=== PATIENT | female | born 1930 | race Caucasian/White ===

== ENCOUNTER 2018-01-21 14:37 | Observation (INO) | payer MEDICARE ==
[2018-01-21] MEDS ORDERED: Adenocard IV 6 MG/2 ML IV ONE ×4 (14:51→15:09)
[2018-01-21] MEDS ORDERED: Sodium Chloride 0.9% 1000 ML 1,000 ML IV SCH ×2 (15:00→16:52)
[2018-01-21] MEDS ORDERED: Sodium Chloride 0.9% 1000 ML 1,000 ML ONE (15:01)
[2018-01-21] MEDS ORDERED: CARDIZEM DRIP 100 MG/100 ML D5W 100 ML IV ONE (15:13)
[2018-01-21 15:15] LABS: BASOPHIL % 0.2 % (0.0-0.4); Basophil (Absolute #) 0.01 (0-0.4); Eosinophil (Absolute #) 0 (0-0.5); Granulocyte Absolute (ANC) 4.45 (1.4-6.9); Granulocytes % 74.9 % (36.0-66.0); Hematocrit 36.9 % (35-47); Hemoglobin 12.1 gm/dl (12.0-16.0); Lymphocyte (Absolute #) 0.87 (1.0-4.6); Lymphocytes % 14.6 % (24.0-44.0); Mean Cell Volume 89.1 fl (78-100); Mean Corpuscular Hemoglobin 29.2 pg (26-32); Mean Corpuscular Hgb Concent. 32.8 g/dl (32-36); Mean Platelet Volume 9.6 fl (6-9.5); Monocyte (Absolute #) 0.61 (0.0-1.3); Monocytes % 10.3 % (0.0-12.0); Platelet Count 201 K/mm3 (150-450); Red Blood Count 4.14 M/mm3 (4.1-5.4); White Blood Count 5.9 K/mm3 (4.0-10.5)
--- NOTE | 2018-01-21 15:19 | ERPHSYRPT ---
- History of Present Illness Time Seen by Provider: 01/21/18 15:15 Source: patient, family Exam Limitations: no limitations Patient Subjective Stated Complaint: pt reports heart palpitations for 3 days. states at times she is short of breath. reports history of a-fib. Triage Nursing Assessment: pt is aox3, pupils perrl although there is an abnormality to the left pupil, pt afebrile, radial pulses are strong and irregular. pt is tachycardic. heart sounds are strong and irregular. pt resps are easy and non labored, with periods of intermittent shortness of breath, cap refill <3 seconds, no edema noted. skin is pink warm dry. Physician History: pt reports heart palpitations for 3 days. states at times she is short of breath. reports history of a-fib. Timing/Duration: today Quality: tightness Location: substernal, central Chest Pain Radiation: no radiation Severity of Pain-Max: mild Severity of Pain-Current: mild Aspirin Treatment Today: no aspirin today Associated Symptoms: shortness of breath Allergies/Adverse Reactions: amoxicillin [Amoxicillin] Allergy (Verified 01/21/18 15:02) dicyclomine HCl [From Bentyl] Allergy (Verified 01/21/18 15:02) levofloxacin [From Levaquin] Allergy (Verified 01/21/18 15:02) Penicillins Allergy (Verified 01/21/18 15:02) sulfamethoxazole [From Bactrim] Allergy (Verified 01/21/18 15:02) Home Medications: Metoprolol Tartrate 50 mg [Lopressor 50 MG] 50 mg PO BID 12/02/15 [History ] Rivaroxaban [Xarelto] 15 mg PO DAILY 12/02/15 [History] Doxycycline Hyclate 100 tab PO BID 12/06/15 [History] Nitrofurantoin Macrocrystal [Macrodantin] 100 cap PO BID 12/06/15 [History] Hx Tetanus, Diphtheria Vaccination/Date Given: No Hx Influenza Vaccination/Date Given: Yes Hx Pneumococcal Vaccination/Date Given: Yes Immunizations Up to Date: Yes - Review of Systems Constitutional: No Fever, No Chills Eyes: No Symptoms Ears, Nose, & Throat: No Symptoms Respiratory: Dyspnea, No Cough Cardiac: Chest Pain, Palpitations, No Edema, No Syncope Abdominal/Gastrointestinal: No Abdominal Pain, No Nausea, No Vomiting, No Diarrhea Genitourinary Symptoms: No Dysuria Musculoskeletal: No Back Pain, No Neck Pain Skin: No Rash Neurological: No Dizziness, No Focal Weakness, No Sensory Changes Psychological: No Symptoms Endocrine: No Symptoms All Other Systems: Reviewed and Negative - Past Medical History Pertinent Past Medical History: Yes Neurological History: No Pertinent History ENT History: Cataracts Cardiac History: Arrhythmia Respiratory History: No Pertinent History Endocrine Medical History: No Pertinent History, Other Musculoskeletal History: No Pertinent History GI Medical History: No Pertinent History History: No Pertinent History Psycho-Social History: No Pertinent History Female Reproductive Disorders: No Pertinent History Other Medical History: pacemaker placed 2016. goiter - Past Surgical History Past Surgical History: Yes Neuro Surgical History: No Pertinent History Cardiac: No Pertinent History Respiratory: No Pertinent History Gastrointestinal: No Pertinent History Genitourinary: No Pertinent History Female Surgical History: Hysterectomy, Other Other Surgical History: cyst removed from right breast, hyst 10 years ago, cataract surgery 2 years ago - Social History Smoking Status: Never smoker Exposure to second hand smoke: No Drug Use: none Patient Lives Alone: Yes - Female History Hx Now: No - Nursing Vital Signs Nursing Vital Signs: Initial Vital Signs Temperature 97.5 F 01/21/18 14:39 Pulse Rate 130 H 01/21/18 14:39 Respiratory Rate 20 01/21/18 14:39 Blood Pressure 116/84 01/21/18 14:39 O2 Sat by Pulse Oximetry 97 01/21/18 14:39 Pain Scale Pain Intensity 0 - Physical Exam General Appearance: no apparent distress, alert Eye Exam: PERRL/EOMI, eyes nml inspection Ears, Nose, Throat Exam: normal ENT inspection, moist mucous membranes Neck Exam: normal inspection, non-tender, supple Respiratory Exam: normal breath sounds, lungs clear, No respiratory distress Cardiovascular Exam: tachycardia, irregular, No edema Gastrointestinal/Abdomen Exam: soft, No tenderness, No mass Back Exam: normal inspection, No CVA tenderness, No vertebral tenderness Extremity Exam: normal inspection, normal range of motion Neurologic Exam: alert, oriented x 3, cooperative, normal mood/affect, nml cerebellar function, sensation nml, No motor deficits Skin Exam: normal color, warm, dry Lymphatic Exam: No adenopathy SpO2: 97 Oxygen Delivery: Room Air - Course Nursing assessment & vital signs reviewed: Yes EKG Interpreted by Me: A-fib - Radiology Exams Chest X-ray Interpretation: Reviewed by me Ordered Tests: Active Orders 24 hr Category Date Time Status Court Interpreter STAT Care 01/21/18 14:52 Active EKG-ER Only STAT Care 01/21/18 14:51 Active CBC W DIFF Stat Lab 01/21/18 15:05 Received CMP Stat Lab 01/21/18 15:05 Received NT PRO BNP Stat Lab 01/21/18 15:05 Received TROPONIN Q3H Lab 01/21/18 15:05 Received TROPONIN Q3H Lab 01/21/18 18:00 Ordered TROPONIN Q3H Lab 01/21/18 21:00 Ordered TROPONIN Q3H Lab 01/22/18 00:00 Ordered TROPONIN Q3H Lab 01/22/18 03:00 Ordered Medication Summary Generic Name Dose Route Start Last Admin Trade Name Freq PRN Reason Stop Dose Admin Sodium Chloride 1,000 mls @ 50 mls/hr 01/21/18 15:00 Sodium Chloride 0.9% 1000 Ml IV 02/20/18 14:59 .Q20H KAYLA Discontinued Medications Generic Name Dose Route Start Last Admin Trade Name Freq PRN Reason Stop Dose Admin Adenosine 6 mg 01/21/18 14:51 Adenocard Iv 6 Mg/2 Ml IV 01/21/18 14:52 STAT ONE Adenosine 12 mg 01/21/18 14:51 Adenocard Iv 6 Mg/2 Ml IV 01/21/18 14:52 STAT ONE Adenosine Confirm 01/21/18 15:00 Adenocard Iv 6 Mg/2 Ml Administered 01/21/18 15:01 Dose 12 mg IV .STK-MED ONE Adenosine Confirm 01/21/18 15:09 Adenocard Iv 6 Mg/2 Ml Administered 01/21/18 15:10 Dose 6 mg IV .STK-MED ONE - Progress Progress: improved Air Movement: good Progress Note: 01/21/18 15:17 6 mg of adenosine IV. Given, which did bring patient heart rate down to 80s but then it went back up to 130s and 140s, so another 12 mg of ready. No sign given, which did bring patient's heart rate in the range of 90 to110. Blood Culture(s) Obtained: No Antibiotics given: No Discussed with : Diana Will see patient in: hospital (observation) Counseled pt/family regarding: lab results, diagnosis, need for follow-up - Departure Time of Disposition: 15:18 Departure Disposition: Observation Clinical Impression: Atrial fibrillation with rapid ventricular response Condition: Fair Critical Care Time: Yes Critical Care Time(excluding separately billable procedures): 30-74 minutes Referrals: DONN CHUN MD [Primary Care Provider] -
[2018-01-21] MEDS ORDERED: CARDIZEM DRIP 100 MG/100 ML D5W 100 ML IV PRN ×2 (15:33→16:52)
[2018-01-21 15:40] LABS: ALBUMIN 3.6 g/dL (3.5-5.0); ANION GAP 14.9 MEQ/L (5-15); BILIRUBIN,TOTAL 0.3 mg/dL (0.2-1.3); Calcium 8.8 mg/dL (8.4-10.2); Creatinine 1 1.1 mg/dL (0.52-1.04); Potassium 4.2 mmol/L (3.5-5.1); Total Protein 6.3 g/dL (6.3-8.2)
[2018-01-21] MEDS: Sodium Chloride 0.9% 1000 ML 1,000 ML IV SCH (16:16)
[2018-01-21] MEDS: PTU 50MG PO SCH (20:59)
[2018-01-21] MEDS: Toprol Xl 50 MG PO SCH (20:59)
[2018-01-22 04:08] VITALS: O2SAT 97
[2018-01-22 06:09] LABS: Hematocrit 34.2 % (35-47); Hemoglobin 11.1 gm/dl (12.0-16.0); Mean Cell Volume 90.2 fl (78-100); Mean Corpuscular Hgb Concent. 32.5 g/dl (32-36); Mean Platelet Volume 9.7 fl (6-9.5); Platelet Count 185 K/mm3 (150-450); Red Blood Count 3.79 M/mm3 (4.1-5.4); Red Cell Distribution Width 15.3 % (11.5-14.0); White Blood Count 5.9 K/mm3 (4.0-10.5)
[2018-01-22 06:21] LABS: Mean Corpuscular Hemoglobin 29.2 pg (26-32)
[2018-01-22 06:33] LABS: ALBUMIN 3.1 g/dL (3.5-5.0); ALKALINE PHOSPHATASE 47 U/L (38-126); ANION GAP 11.7 MEQ/L (5-15); BLOOD UREA NITROGEN 18 mg/dL (7-17); CHLORIDE 112 mmol/L (98-107); Calcium 8.5 mg/dL (8.4-10.2); Carbon Dioxide 21 mmol/L (22-30); Creatinine 1 0.89 mg/dL (0.52-1.04); Glucose 94 mg/dL (74-106); Potassium 4.4 mmol/L (3.5-5.1); SGOT/AST 18 U/L (14-36); SGPT/ALT 23 U/L (0-35); SODIUM 140 mmol/L (137-145); Total Protein 5.6 g/dL (6.3-8.2)
[2018-01-22 07:40] VITALS: BP 152/59; PULSE 72
[2018-01-22] MEDS ORDERED: TYLENOL 325 MG PO PRN (08:31)
[2018-01-22] MEDS: Sodium Chloride 0.9% 1000 ML 1,000 ML IV SCH (08:35)
[2018-01-22] MEDS: PTU 50MG PO SCH (09:13)
[2018-01-22] MEDS: Toprol Xl 50 MG PO SCH (09:15)
[2018-01-22] MEDS ORDERED: XARELTO 10 MG TABLET PO SCH (10:00)
[2018-01-22] MEDS ORDERED: NORVASC 5 MG PO SCH (10:00)
[2018-01-22] MEDS ORDERED: ECOTRIN 81 MG PO SCH (10:00)
[2018-01-22] MEDS ORDERED: NON-FORMULARY ITEM (Amlodipine Besylate [Norvasc] 2.5 MG) PO SCH (10:00)
--- NOTE | 2018-01-22 11:46 | PCM.SSS ---
History of Present Illness - Chief Complaint Chief Complaint: c/o palpitations for 1 days History of Present Illness: is a 87 year old female.came to ER with C/0 palpitations and chest tightness for 1 day - Review of Systems Constitutional: No Fever, No Chills Eyes: No Symptoms Ears, Nose, & Throat: No Symptoms Respiratory: No Cough, No Short Of Breath Cardiac: Chest Pain, Palpitations, No Edema, No Syncope, No Orthopnea, No PND Abdominal/Gastrointestinal: No Abdominal Pain, No Nausea, No Vomiting, No Diarrhea Genitourinary Symptoms: No Dysuria Musculoskeletal: No Back Pain, No Neck Pain Skin: No Rash Neurological: No Dizziness, No Focal Weakness, No Sensory Changes Psychological: No Symptoms Endocrine: No Symptoms Hematologic/Lymphatic: No Symptoms Immunological/Allergic: No Symptoms Medications & Allergies Home Medications: Home Medication List Amlodipine Besylate [Norvasc] 2.5 mg PO DAILY 01/21/18 [History Confirmed ] Aspirin EC 81 mg [Ecotrin 81 mg] 81 mg PO DAILY 01/21/18 [History Confirmed 01/21/18] Metoprolol Succinate 50 mg [Toprol Xl 50 MG] 50 mg PO BID 01/21/18 [ History Confirmed 01/21/18] Propylthiouracil 200 mg PO TID 01/21/18 [History Confirmed 01/21/18] Rivaroxaban [Xarelto] 15 mg PO QAM 01/21/18 [History Confirmed 01/21/18] Allergies/Adverse Reactions: Allergies Allergy/AdvReac Type Severity Reaction Status Date / Time amoxicillin [Amoxicillin] Allergy Verified 01/21/18 15:02 dicyclomine HCl [From Bentyl] Allergy Verified 01/21/18 15:02 levofloxacin [From Levaquin] Allergy Verified 01/21/18 15:02 Penicillins Allergy Verified 01/21/18 15:02 sulfamethoxazole Allergy Verified 01/21/18 15:02 [From Bactrim] - Past Medical History Past Medical History: Yes Neurological History: No Pertinent History ENT History: Cataracts Cardiac History: Arrhythmia Respiratory History: No Pertinent History Endocrine Medical History: No Pertinent History, Other Musculoskelatal History: No Pertinent History GI Medical History: No Pertinent History History: No Pertinent History Pyscho-Social History: No Pertinent History Reproductive Disorders: No Pertinent History Comment: pacemaker placed 2016. goiter - Female History Hx Last Menstrual Period: N/A Are you now?: No - Past Surgical History Past Surgical History: Yes Neuro Surgical History: No Pertinent History Cardiac History: No Pertinent History Respiratory Surgery: No Pertinent History GI Surgical History: No Pertinent History Genitourinary Surgical Hx: No Pertinent History Female Surgical History: Hysterectomy, Other Other Surgical History: cyst removed from right breast, hyst 10 years ago, cataract surgery 2 years ago - Social History Smoking Status: Never smoker Exposure to second hand smoke: No Alcohol: None Drug Use: none - Physical Exam Vital Signs: Vital Signs - 24 hr Temp Pulse Pulse Resp BP Pulse Ox 01/22/18 07:37 72 19 152/59 97 01/22/18 04:00 98.4 F 71 18 100/41 97 01/22/18 00:01 70 01/22/18 00:00 98.1 F 70 21 113/49 98 01/21/18 23:59 19 01/21/18 20:00 15 01/21/18 19:49 97.6 F 73 12 96/45 97 01/21/18 17:41 73 20 122/62 97 01/21/18 17:10 72 20 96/50 98 01/21/18 17:00 71 19 94/50 96 01/21/18 16:53 98.0 F 70 18 108/59 99 01/21/18 16:09 112 H 18 92/60 97 01/21/18 16:00 120 H 20 82/47 98 01/21/18 15:19 97 01/21/18 14:39 97.5 F 129 H 130 H 20 116/84 97 General Appearance: no apparent distress, alert Neurologic Exam: alert, oriented x 3, cooperative, normal mood/affect, nml cerebellar function, nml station & gait, sensation nml, No motor deficits Eye Exam: PERRL/EOMI, eyes nml inspection Ears, Nose, Throat Exam: normal ENT inspection, TMs normal, pharynx normal, moist mucous membranes Neck Exam: normal inspection, non-tender, supple, full range of motion Respiratory Exam: normal breath sounds, lungs clear, No respiratory distress Cardiovascular Exam: tachycardia, irregular Gastrointestinal/Abdomen Exam: soft, normal bowel sounds, No tenderness, No mass Back Exam: normal inspection, normal range of motion, No CVA tenderness, No vertebral tenderness Extremity Exam: normal inspection, normal range of motion, pelvis stable Skin Exam: normal color, warm, dry, No rash Lymphatic Exam: No adenopathy Results - Labs Lab/Micro Results: Lab Results-Last 24 Hours 01/21/18 01/21/18 01/21/18 Range/Units 15:05 15:05 15:05 WBC 5.9 (4.0-10.5) K/mm3 RBC 4.14 (4.1-5.4) M/mm3 Hgb 12.1 (12.0-16.0) gm/dl Hct 36.9 (35-47) % MCV 89.1 (78-100) fl MCH 29.2 (26-32) pg MCHC 32.8 (32-36) g/dl RDW 15.0 H (11.5-14.0) % Plt Count 201 (150-450) K/mm3 MPV 9.6 H (6-9.5) fl Gran % 74.9 H (36.0-66.0) % Eos # (Auto) 0 (0-0.5) Absolute Lymphs (auto) 0.87 L (1.0-4.6) Absolute Monos (auto) 0.61 (0.0-1.3) Lymphocytes % 14.6 L (24.0-44.0) % Monocytes % 10.3 (0.0-12.0) % Eosinophils % 0.0 (0.00-5.0) % Basophils % 0.2 (0.0-0.4) % Absolute Granulocytes 4.45 (1.4-6.9) Basophils # 0.01 (0-0.4) Sodium 140 (137-145) mmol/L Potassium 4.2 (3.5-5.1) mmol/L Chloride 109 H (98-107) mmol/L Carbon Dioxide 21 L (22-30) mmol/L Anion Gap 14.9 (5-15) MEQ/L BUN 22 H (7-17) mg/dL Creatinine 1.10 H (0.52-1.04) mg/dL Estimated GFR 49.9 ML/MIN Glucose 137 H (74-106) mg/dL Calcium 8.8 (8.4-10.2) mg/dL Total Bilirubin 0.30 (0.2-1.3) mg/dL AST 16 (14-36) U/L ALT 25 (0-35) U/L Alkaline Phosphatase 48 (38-126) U/L Troponin I < 0.012 (0.000-0.034) ng/mL NT-Pro-B Natriuret Pep 7280 H (0-1800) pg/mL Serum Total Protein 6.3 (6.3-8.2) g/dL Albumin 3.6 (3.5-5.0) g/dL 01/21/18 01/21/18 01/22/18 Range/Units 18:00 21:00 00:00 WBC (4.0-10.5) K/mm3 RBC (4.1-5.4) M/mm3 Hgb (12.0-16.0) gm/dl Hct (35-47) % MCV (78-100) fl MCH (26-32) pg MCHC (32-36) g/dl RDW (11.5-14.0) % Plt Count (150-450) K/mm3 MPV (6-9.5) fl Gran % (36.0-66.0) % Eos # (Auto) (0-0.5) Absolute Lymphs (auto) (1.0-4.6) Absolute Monos (auto) (0.0-1.3) Lymphocytes % (24.0-44.0) % Monocytes % (0.0-12.0) % Eosinophils % (0.00-5.0) % Basophils % (0.0-0.4) % Absolute Granulocytes (1.4-6.9) Basophils # (0-0.4) Sodium (137-145) mmol/L Potassium (3.5-5.1) mmol/L Chloride (98-107) mmol/L Carbon Dioxide (22-30) mmol/L Anion Gap (5-15) MEQ/L BUN (7-17) mg/dL Creatinine (0.52-1.04) mg/dL Estimated GFR ML/MIN Glucose (74-106) mg/dL Calcium (8.4-10.2) mg/dL Total Bilirubin (0.2-1.3) mg/dL AST (14-36) U/L ALT (0-35) U/L Alkaline Phosphatase (38-126) U/L Troponin I < 0.012 0.013 0.014 (0.000-0.034) ng/mL NT-Pro-B Natriuret Pep (0-1800) pg/mL Serum Total Protein (6.3-8.2) g/dL Albumin (3.5-5.0) g/dL 01/22/18 01/22/18 01/22/18 Range/Units 03:00 05:58 05:58 WBC 5.9 (4.0-10.5) K/mm3 RBC 3.79 L (4.1-5.4) M/mm3 Hgb 11.1 L (12.0-16.0) gm/dl Hct 34.2 L (35-47) % MCV 90.2 (78-100) fl MCH 29.2 (26-32) pg MCHC 32.5 (32-36) g/dl RDW 15.3 H (11.5-14.0) % Plt Count 185 (150-450) K/mm3 MPV 9.7 H (6-9.5) fl Gran % (36.0-66.0) % Eos # (Auto) (0-0.5) Absolute Lymphs (auto) (1.0-4.6) Absolute Monos (auto) (0.0-1.3) Lymphocytes % (24.0-44.0) % Monocytes % (0.0-12.0) % Eosinophils % (0.00-5.0) % Basophils % (0.0-0.4) % Absolute Granulocytes (1.4-6.9) Basophils # (0-0.4) Sodium 140 (137-145) mmol/L Potassium 4.4 (3.5-5.1) mmol/L Chloride 112 H (98-107) mmol/L Carbon Dioxide 21 L (22-30) mmol/L Anion Gap 11.7 (5-15) MEQ/L BUN 18 H (7-17) mg/dL Creatinine 0.89 (0.52-1.04) mg/dL Estimated GFR > 60.0 ML/MIN Glucose 94 (74-106) mg/dL Calcium 8.5 (8.4-10.2) mg/dL Total Bilirubin 0.20 (0.2-1.3) mg/dL AST 18 (14-36) U/L ALT 23 (0-35) U/L Alkaline Phosphatase 47 (38-126) U/L Troponin I 0.016 (0.000-0.034) ng/mL NT-Pro-B Natriuret Pep (0-1800) pg/mL Serum Total Protein 5.6 L (6.3-8.2) g/dL Albumin 3.1 L (3.5-5.0) g/dL Assessment/Plan (1) Atrial fibrillation with rapid ventricular response Status: Acute Assessment & Plan: Chief Complaint Diagnosis atrial fibrillation with RVR Allergies Allergy/AdvReac Type Severity Reaction Status Date / Time amoxicillin [Amoxicillin] Allergy Verified 01/21/18 15:02 dicyclomine HCl [From Bentyl] Allergy Verified 01/21/18 15:02 levofloxacin [From Levaquin] Allergy Verified 01/21/18 15:02 Penicillins Allergy Verified 01/21/18 15:02 sulfamethoxazole Allergy Verified 01/21/18 15:02 [From Bactrim] Vital Signs (Last 24 hours) Temp Pulse Pulse Resp BP Pulse Ox 01/22/18 07:37 72 19 152/59 97 01/22/18 04:00 98.4 F 71 18 100/41 97 01/22/18 00:01 70 01/22/18 00:00 98.1 F 70 21 113/49 98 01/21/18 23:59 19 01/21/18 20:00 15 01/21/18 19:49 97.6 F 73 12 96/45 97 01/21/18 17:41 73 20 122/62 97 01/21/18 17:10 72 20 96/50 98 01/21/18 17:00 71 19 94/50 96 01/21/18 16:53 98.0 F 70 18 108/59 99 01/21/18 16:09 112 H 18 92/60 97 01/21/18 16:00 120 H 20 82/47 98 01/21/18 15:19 97 01/21/18 14:39 97.5 F 129 H 130 H 20 116/84 97 Home Medications Medication Instructions Recorded Confirmed Last Taken Type Amlodipine Besylate [Norvasc] 2.5 mg PO DAILY 01/21/18 01/21/18 01/21/18 History Aspirin EC 81 mg [Ecotrin 81 81 mg PO DAILY 01/21/18 01/21/18 01/21/18 History mg] Metoprolol Succinate 50 mg 50 mg PO BID 01/21/18 01/21/18 01/21/18 History [Toprol Xl 50 MG] Propylthiouracil 200 mg PO TID 01/21/18 01/21/18 01/21/18 History Rivaroxaban [Xarelto] 15 mg PO QAM 01/21/18 01/21/18 01/21/18 History Current Medications Discontinued Medications Generic Name Dose Route Start Last Admin Trade Name Freq PRN Reason Stop Dose Admin Acetaminophen 650 mg 01/22/18 08:31 Tylenol 325 Mg PO 02/21/18 08:30 Q4H PRN PRN PAIN AND/OR FEVER Adenosine 6 mg 01/21/18 14:51 01/21/18 15:24 Adenocard Iv 6 Mg/2 Ml IV 01/21/18 14:52 6 mg STAT ONE Administration Adenosine 12 mg 01/21/18 14:51 01/21/18 15:24 Adenocard Iv 6 Mg/2 Ml IV 01/21/18 14:52 12 mg STAT ONE Administration Adenosine Confirm 01/21/18 15:00 Adenocard Iv 6 Mg/2 Ml Administered 01/21/18 15:01 Dose 12 mg IV .STK-MED ONE Adenosine Confirm 01/21/18 15:09 Adenocard Iv 6 Mg/2 Ml Administered 01/21/18 15:10 Dose 6 mg IV .STK-MED ONE Amlodipine Besylate 2.5 mg 01/22/18 10:00 01/22/18 09:14 Norvasc 5 Mg PO 02/21/18 09:59 2.5 mg DAILY KAYLA Administration Aspirin 81 mg 01/22/18 10:00 01/22/18 09:14 Ecotrin 81 Mg PO 02/21/18 09:59 81 mg DAILY KAYLA Administration Sodium Chloride 1,000 mls @ 50 mls/hr 01/21/18 15:00 01/21/18 15:24 Sodium Chloride 0.9% 1000 Ml IV 02/20/18 14:59 50 mls/hr .Q20H KAYLA Administration Diltiazem HCl Confirm 01/21/18 15:13 Cardizem Drip 100 Mg/100 Ml D5w Administered 01/21/18 15:14 Dose 100 mls @ ud IV .STK-MED ONE Diltiazem HCl 100 mls @ 5 mls/hr 01/21/18 15:33 01/21/18 17:52 Cardizem Drip 100 Mg/100 Ml D5w IV 02/20/18 15:32 0 mg/hr .Q20H PRN 0 mls/hr HEART RATE/ A-FIB Titration Protocol 5 MG/HR Sodium Chloride 1,000 mls @ 100 mls/hr 01/21/18 16:15 01/22/18 08:35 Sodium Chloride 0.9% 1000 Ml IV 02/20/18 16:14 Not Given .Q10H KAYLA Diltiazem HCl 100 mls @ 5 mls/hr 01/21/18 16:52 Cardizem Drip 100 Mg/100 Ml D5w IV 02/20/18 16:51 .Q20H PRN HEART RATE/ A-FIB Protocol 5 MG/HR Sodium Chloride 1,000 mls @ 50 mls/hr 01/21/18 16:52 01/21/18 20:59 Sodium Chloride 0.9% 1000 Ml IV 02/20/18 16:51 50 mls/hr .Q20H KAYLA Administration Sodium Chloride Confirm 01/21/18 15:01 Sodium Chloride 0.9% 1000 Ml Administered 01/21/18 15:02 Dose 1,000 mls @ ud .ROUTE .STK-MED ONE Metoprolol Succinate 50 mg 01/21/18 22:00 01/22/18 09:15 Toprol Xl 50 Mg PO 02/20/18 21:59 50 mg BID KAYLA Administration Propylthiouracil 200 mg 01/21/18 22:00 01/22/18 09:13 Ptu 50mg PO 02/20/18 21:59 200 mg TID KAYLA Administration Rivaroxaban 15 mg 01/22/18 10:00 01/22/18 09:12 Xarelto 10 Mg Tablet PO 02/21/18 09:59 15 mg QAM KAYLA Administration Intake & Output (Last 24 hours) 01/19/18 01/20/18 01/21/18 01/22/18 11:59 11:59 11:59 11:59 Intake Total 1740 Output Total 570 Balance 1170 Weight 54.6 kg Laboratory Results (Last 24 hours) 01/22/18 01/22/18 01/22/18 05:58 05:58 03:00 WBC 5.9 RBC 3.79 L Hgb 11.1 L Hct 34.2 L MCV 90.2 MCH 29.2 MCHC 32.5 RDW 15.3 H Plt Count 185 MPV 9.7 H Gran % Eos # (Auto) Absolute Lymphs (auto) Absolute Monos (auto) Lymphocytes % Monocytes % Eosinophils % Basophils % Absolute Granulocytes Basophils # Sodium 140 Potassium 4.4 Chloride 112 H Carbon Dioxide 21 L Anion Gap 11.7 BUN 18 H Creatinine 0.89 Estimated GFR > 60.0 Glucose 94 Calcium 8.5 Total Bilirubin 0.20 AST 18 ALT 23 Alkaline Phosphatase 47 Troponin I 0.016 NT-Pro-B Natriuret Pep Serum Total Protein 5.6 L Albumin 3.1 L 01/22/18 01/21/18 01/21/18 00:00 21:00 18:00 WBC RBC Hgb Hct MCV MCH MCHC RDW Plt Count MPV Gran % Eos # (Auto) Absolute Lymphs (auto) Absolute Monos (auto) Lymphocytes % Monocytes % Eosinophils % Basophils % Absolute Granulocytes Basophils # Sodium Potassium Chloride Carbon Dioxide Anion Gap BUN Creatinine Estimated GFR Glucose Calcium Total Bilirubin AST ALT Alkaline Phosphatase Troponin I 0.014 0.013 < 0.012 NT-Pro-B Natriuret Pep Serum Total Protein Albumin 01/21/18 01/21/18 01/21/18 15:05 15:05 15:05 WBC 5.9 RBC 4.14 Hgb 12.1 Hct 36.9 MCV 89.1 MCH 29.2 MCHC 32.8 RDW 15.0 H Plt Count 201 MPV 9.6 H Gran % 74.9 H Eos # (Auto) 0 Absolute Lymphs (auto) 0.87 L Absolute Monos (auto) 0.61 Lymphocytes % 14.6 L Monocytes % 10.3 Eosinophils % 0.0 Basophils % 0.2 Absolute Granulocytes 4.45 Basophils # 0.01 Sodium 140 Potassium 4.2 Chloride 109 H Carbon Dioxide 21 L Anion Gap 14.9 BUN 22 H Creatinine 1.10 H Estimated GFR 49.9 Glucose 137 H Calcium 8.8 Total Bilirubin 0.30 AST 16 ALT 25 Alkaline Phosphatase 48 Troponin I < 0.012 NT-Pro-B Natriuret Pep 7280 H Serum Total Protein 6.3 Albumin 3.6 Orders (Last 24 hours) Category Date Time Status Up Ad Colette TOLERATED Activity 01/21/18 16:52 Active Woven Paper Hat Mender STAT Care 01/21/18 14:52 Completed EKG-ER Only STAT Care 01/21/18 14:[address] in Observation ROUTINE Care 01/21/18 16:52 Active Telemetry PROTOCOL Care 01/21/18 16:52 Active Deckhand Sponge Boat/Discharge Plan ROUTINE Cons 01/21/18 18:44 Active Cardiac Diet Diet 01/21/18 Dinner Completed Regular Diet Diet 01/22/18 Breakfast Completed Discharge Routine Discharge 01/22/18 Ordered CBC AM.LAB Lab 01/22/18 05:58 Completed CBC W DIFF Stat Lab 01/21/18 15:05 Completed CMP AM.LAB Lab 01/22/18 05:58 Completed CMP Stat Lab 01/21/18 15:05 Completed NT PRO BNP Stat Lab 01/21/18 15:05 Completed TROPONIN Q3H Lab 01/21/18 15:05 Completed TROPONIN Q3H Lab 01/21/18 18:00 Completed TROPONIN Q3H Lab 01/21/18 21:00 Completed TROPONIN Q3H Lab 01/22/18 00:00 Completed TROPONIN Q3H Lab 01/22/18 03:00 Completed Acetaminophen 325 mg [Tylenol 325 mg] Med 01/22/18 08:31 Discontinued 650 mg PO Q4H PRN PRN Adenosine 6 mg/2 ml [Adenocard IV 6 MG/2 ML] Med 01/21/18 15:00 Discontinued 12 mg IV .STK-MED ONE Adenosine 6 mg/2 ml [Adenocard IV 6 MG/2 ML] Med 01/21/18 14:51 Discontinued 12 mg IV STAT ONE Adenosine 6 mg/2 ml [Adenocard IV 6 MG/2 ML] Med 01/21/18 15:09 Discontinued 6 mg IV .STK-MED ONE Adenosine 6 mg/2 ml [Adenocard IV 6 MG/2 ML] Med 01/21/18 14:51 Discontinued 6 mg IV STAT ONE Amlodipine Besylate 5 mg [Norvasc 5 mg] Med 01/22/18 10:00 Discontinued 2.5 mg PO DAILY Aspirin EC 81 mg [Ecotrin 81 mg] Med 01/22/18 10:00 Discontinued 81 mg PO DAILY Diltiazem HCl 100 mg/100 ml [Cardizem Drip 100 mg/100 Med 01/21/18 15:33 Discontinued ml D5w] 100 ml IV 5 mg/hr Diltiazem HCl 100 mg/100 ml [Cardizem Drip 100 mg/100 Med 01/21/18 16:52 Discontinued ml D5w] 100 ml IV 5 mg/hr Diltiazem HCl 100 mg/100 ml [Cardizem Drip 100 mg/100 Med 01/21/18 15:13 Discontinued ml D5w] 100 ml IV UD Metoprolol Succinate 50 mg [Toprol Xl 50 MG] Med 01/21/18 22:00 Discontinued 50 mg PO BID NaCl 0.9% 1000 ml [Sodium Chloride 0.9% 1000 ML] 1,000 Med 01/21/18 15:01 Discontinued ml .ROUTE UD NaCl 0.9% 1000 ml [Sodium Chloride 0.9% 1000 ML] 1,000 Med 01/21/18 16:15 Discontinued ml IV 100 mls/hr NaCl 0.9% 1000 ml [Sodium Chloride 0.9% 1000 ML] 1,000 Med 01/21/18 15:00 Discontinued ml IV 50 mls/hr NaCl 0.9% 1000 ml [Sodium Chloride 0.9% 1000 ML] 1,000 Med 01/21/18 16:52 Discontinued ml IV 50 mls/hr Propylthiouracil 50 mg [Ptu 50Mg] Med 01/21/18 22:00 Discontinued 200 mg PO TID Rivaroxaban 10 mg Tablet [Xarelto 10 mg Tablet] Med 01/22/18 10:00 Discontinued 15 mg PO QAM EKG REPEAT IN AM RT 01/21/18 16:52 Completed Standby STAT RT 01/21/18 15:42 Completed Patient Care Notes (Last 24 hours) 01/22/18 08:57 Nursing Note by Maggy Chandler son at bedside. Initialized on 01/22/18 08:57 - END OF NOTE 01/22/18 08:09 Nursing Note by Maggy Chandler iv bleeding at insertion site, pt refuses to be stuck again. ivf dc'd. iv flushed without difficulty. Initialized on 01/22/18 08:09 - END OF NOTE 01/21/18 21:10 Nursing Note by Grecia Arcos Patient's 2200 dose of Propylthiouracil 200mg given from patient's home supply medication bottle. Medication was verified via [employer] with boiler house operator Dinorah before administration. Initialized on 01/21/18 21:10 - END OF NOTE 01/21/18 15:47 Respiratory Note by Yanira Norwood PER PROTOCAL PT RECEIVING ADENOCARD. [id number]. 2 DOSES GIVEN Initialized on 01/21/18 15:47 - END OF NOTE Patient is doing better, will d/c home today Code(s): I48.91 - UNSPECIFIED ATRIAL FIBRILLATION (2) Chest pain Status: Acute Qualifiers: Chest pain type: other chest pain Qualified Code(s): R07.89 - Other chest pain; R07.8 - Other chest pain Code(s): R07.9 - CHEST PAIN, UNSPECIFIED Hospital Summary - Hospital Course Hospital Course: Chief Complaint Diagnosis atrial fibrillation with RVR Allergies Allergy/AdvReac Type Severity Reaction Status Date / Time amoxicillin [Amoxicillin] Allergy Verified 01/21/18 15:02 dicyclomine HCl [From Bentyl] Allergy Verified 01/21/18 15:02 levofloxacin [From Levaquin] Allergy Verified 01/21/18 15:02 Penicillins Allergy Verified 01/21/18 15:02 sulfamethoxazole Allergy Verified 01/21/18 15:02 [From Bactrim] Vital Signs (Last 24 hours) Temp Pulse Pulse Resp BP Pulse Ox 01/22/18 07:37 72 19 152/59 97 01/22/18 04:00 98.4 F 71 18 100/41 97 01/22/18 00:01 70 01/22/18 00:00 98.1 F 70 21 113/49 98 01/21/18 23:59 19 01/21/18 20:00 15 01/21/18 19:49 97.6 F 73 12 96/45 97 01/21/18 17:41 73 20 122/62 97 01/21/18 17:10 72 20 96/50 98 01/21/18 17:00 71 19 94/50 96 01/21/18 16:53 98.0 F 70 18 108/59 99 01/21/18 16:09 112 H 18 92/60 97 01/21/18 16:00 120 H 20 82/47 98 01/21/18 15:19 97 01/21/18 14:39 97.5 F 129 H 130 H 20 116/84 97 Home Medications Medication Instructions Recorded Confirmed Last Taken Type Amlodipine Besylate [Norvasc] 2.5 mg PO DAILY 01/21/18 01/21/18 01/21/18 History Aspirin EC 81 mg [Ecotrin 81 81 mg PO DAILY 01/21/18 01/21/18 01/21/18 History mg] Metoprolol Succinate 50 mg 50 mg PO BID 01/21/18 01/21/18 01/21/18 History [Toprol Xl 50 MG] Propylthiouracil 200 mg PO TID 01/21/18 01/21/18 01/21/18 History Rivaroxaban [Xarelto] 15 mg PO QAM 01/21/18 01/21/18 01/21/18 History Current Medications Discontinued Medications Generic Name Dose Route Start Last Admin Trade Name Freq PRN Reason Stop Dose Admin Acetaminophen 650 mg 01/22/18 08:31 Tylenol 325 Mg PO 02/21/18 08:30 Q4H PRN PRN PAIN AND/OR FEVER Adenosine 6 mg 01/21/18 14:51 01/21/18 15:24 Adenocard Iv 6 Mg/2 Ml IV 01/21/18 14:52 6 mg STAT ONE Administration Adenosine 12 mg 01/21/18 14:51 01/21/18 15:24 Adenocard Iv 6 Mg/2 Ml IV 01/21/18 14:52 12 mg STAT ONE Administration Adenosine Confirm 01/21/18 15:00 Adenocard Iv 6 Mg/2 Ml Administered 01/21/18 15:01 Dose 12 mg IV .STK-MED ONE Adenosine Confirm 01/21/18 15:09 Adenocard Iv 6 Mg/2 Ml Administered 01/21/18 15:10 Dose 6 mg IV .STK-MED ONE Amlodipine Besylate 2.5 mg 01/22/18 10:00 01/22/18 09:14 Norvasc 5 Mg PO 02/21/18 09:59 2.5 mg DAILY KAYLA Administration Aspirin 81 mg 01/22/18 10:00 01/22/18 09:14 Ecotrin 81 Mg PO 02/21/18 09:59 81 mg DAILY KAYLA Administration Sodium Chloride 1,000 mls @ 50 mls/hr 01/21/18 15:00 01/21/18 15:24 Sodium Chloride 0.9% 1000 Ml IV 02/20/18 14:59 50 mls/hr .Q20H KAYLA Administration Diltiazem HCl Confirm 01/21/18 15:13 Cardizem Drip 100 Mg/100 Ml D5w Administered 01/21/18 15:14 Dose 100 mls @ ud IV .STK-MED ONE Diltiazem HCl 100 mls @ 5 mls/hr 01/21/18 15:33 01/21/18 17:52 Cardizem Drip 100 Mg/100 Ml D5w IV 02/20/18 15:32 0 mg/hr .Q20H PRN 0 mls/hr HEART RATE/ A-FIB Titration Protocol 5 MG/HR Sodium Chloride 1,000 mls @ 100 mls/hr 01/21/18 16:15 01/22/18 08:35 Sodium Chloride 0.9% 1000 Ml IV 02/20/18 16:14 Not Given .Q10H KAYLA Diltiazem HCl 100 mls @ 5 mls/hr 01/21/18 16:52 Cardizem Drip 100 Mg/100 Ml D5w IV 02/20/18 16:51 .Q20H PRN HEART RATE/ A-FIB Protocol 5 MG/HR Sodium Chloride 1,000 mls @ 50 mls/hr 01/21/18 16:52 01/21/18 20:59 Sodium Chloride 0.9% 1000 Ml IV 02/20/18 16:51 50 mls/hr .Q20H KAYLA Administration Sodium Chloride Confirm 01/21/18 15:01 Sodium Chloride 0.9% 1000 Ml Administered 01/21/18 15:02 Dose 1,000 mls @ ud .ROUTE .STK-MED ONE Metoprolol Succinate 50 mg 01/21/18 22:00 01/22/18 09:15 Toprol Xl 50 Mg PO 02/20/18 21:59 50 mg BID KAYLA Administration Propylthiouracil 200 mg 01/21/18 22:00 01/22/18 09:13 Ptu 50mg PO 02/20/18 21:59 200 mg TID KAYLA Administration Rivaroxaban 15 mg 01/22/18 10:00 01/22/18 09:12 Xarelto 10 Mg Tablet PO 02/21/18 09:59 15 mg QAM KAYLA Administration Intake & Output (Last 24 hours) 01/19/18 01/20/18 01/21/18 01/22/18 11:59 11:59 11:59 11:59 Intake Total 1740 Output Total 570 Balance 1170 Weight 54.6 kg Laboratory Results (Last 24 hours) 01/22/18 01/22/18 01/22/18 05:58 05:58 03:00 WBC 5.9 RBC 3.79 L Hgb 11.1 L Hct 34.2 L MCV 90.2 MCH 29.2 MCHC 32.5 RDW 15.3 H Plt Count 185 MPV 9.7 H Gran % Eos # (Auto) Absolute Lymphs (auto) Absolute Monos (auto) Lymphocytes % Monocytes % Eosinophils % Basophils % Absolute Granulocytes Basophils # Sodium 140 Potassium 4.4 Chloride 112 H Carbon Dioxide 21 L Anion Gap 11.7 BUN 18 H Creatinine 0.89 Estimated GFR > 60.0 Glucose 94 Calcium 8.5 Total Bilirubin 0.20 AST 18 ALT 23 Alkaline Phosphatase 47 Troponin I 0.016 NT-Pro-B Natriuret Pep Serum Total Protein 5.6 L Albumin 3.1 L 01/22/18 01/21/18 01/21/18 00:00 21:00 18:00 WBC RBC Hgb Hct MCV MCH MCHC RDW Plt Count MPV Gran % Eos # (Auto) Absolute Lymphs (auto) Absolute Monos (auto) Lymphocytes % Monocytes % Eosinophils % Basophils % Absolute Granulocytes Basophils # Sodium Potassium Chloride Carbon Dioxide Anion Gap BUN Creatinine Estimated GFR Glucose Calcium Total Bilirubin AST ALT Alkaline Phosphatase Troponin I 0.014 0.013 < 0.012 NT-Pro-B Natriuret Pep Serum Total Protein Albumin 01/21/18 01/21/18 01/21/18 15:05 15:05 15:05 WBC 5.9 RBC 4.14 Hgb 12.1 Hct 36.9 MCV 89.1 MCH 29.2 MCHC 32.8 RDW 15.0 H Plt Count 201 MPV 9.6 H Gran % 74.9 H Eos # (Auto) 0 Absolute Lymphs (auto) 0.87 L Absolute Monos (auto) 0.61 Lymphocytes % 14.6 L Monocytes % 10.3 Eosinophils % 0.0 Basophils % 0.2 Absolute Granulocytes 4.45 Basophils # 0.01 Sodium 140 Potassium 4.2 Chloride 109 H Carbon Dioxide 21 L Anion Gap 14.9 BUN 22 H Creatinine 1.10 H Estimated GFR 49.9 Glucose 137 H Calcium 8.8 Total Bilirubin 0.30 AST 16 ALT 25 Alkaline Phosphatase 48 Troponin I < 0.012 NT-Pro-B Natriuret Pep 7280 H Serum Total Protein 6.3 Albumin 3.6 Orders (Last 24 hours) Category Date Time Status Up Ad Colette TOLERATED Activity 01/21/18 16:52 Active Woven Paper Hat Mender STAT Care 01/21/18 14:52 Completed EKG-ER Only STAT Care 01/21/18 14:[address] in Observation ROUTINE Care 01/21/18 16:52 Active Telemetry PROTOCOL Care 01/21/18 16:52 Active Deckhand Sponge Boat/Discharge Plan ROUTINE Cons 01/21/18 18:44 Active Cardiac Diet Diet 01/21/18 Dinner Completed Regular Diet Diet 01/22/18 Breakfast Completed Discharge Routine Discharge 01/22/18 Ordered CBC AM.LAB Lab 01/22/18 05:58 Completed CBC W DIFF Stat Lab 01/21/18 15:05 Completed CMP AM.LAB Lab 01/22/18 05:58 Completed CMP Stat Lab 01/21/18 15:05 Completed NT PRO BNP Stat Lab 01/21/18 15:05 Completed TROPONIN Q3H Lab 01/21/18 15:05 Completed TROPONIN Q3H Lab 01/21/18 18:00 Completed TROPONIN Q3H Lab 01/21/18 21:00 Completed TROPONIN Q3H Lab 01/22/18 00:00 Completed TROPONIN Q3H Lab 01/22/18 03:00 Completed Acetaminophen 325 mg [Tylenol 325 mg] Med 01/22/18 08:31 Discontinued 650 mg PO Q4H PRN PRN Adenosine 6 mg/2 ml [Adenocard IV 6 MG/2 ML] Med 01/21/18 15:00 Discontinued 12 mg IV .STK-MED ONE Adenosine 6 mg/2 ml [Adenocard IV 6 MG/2 ML] Med 01/21/18 14:51 Discontinued 12 mg IV STAT ONE Adenosine 6 mg/2 ml [Adenocard IV 6 MG/2 ML] Med 01/21/18 15:09 Discontinued 6 mg IV .STK-MED ONE Adenosine 6 mg/2 ml [Adenocard IV 6 MG/2 ML] Med 01/21/18 14:51 Discontinued 6 mg IV STAT ONE Amlodipine Besylate 5 mg [Norvasc 5 mg] Med 01/22/18 10:00 Discontinued 2.5 mg PO DAILY Aspirin EC 81 mg [Ecotrin 81 mg] Med 01/22/18 10:00 Discontinued 81 mg PO DAILY Diltiazem HCl 100 mg/100 ml [Cardizem Drip 100 mg/100 Med 01/21/18 15:33 Discontinued ml D5w] 100 ml IV 5 mg/hr Diltiazem HCl 100 mg/100 ml [Cardizem Drip 100 mg/100 Med 01/21/18 16:52 Discontinued ml D5w] 100 ml IV 5 mg/hr Diltiazem HCl 100 mg/100 ml [Cardizem Drip 100 mg/100 Med 01/21/18 15:13 Discontinued ml D5w] 100 ml IV UD Metoprolol Succinate 50 mg [Toprol Xl 50 MG] Med 01/21/18 22:00 Discontinued 50 mg PO BID NaCl 0.9% 1000 ml [Sodium Chloride 0.9% 1000 ML] 1,000 Med 01/21/18 15:01 Discontinued ml .ROUTE UD NaCl 0.9% 1000 ml [Sodium Chloride 0.9% 1000 ML] 1,000 Med 01/21/18 16:15 Discontinued ml IV 100 mls/hr NaCl 0.9% 1000 ml [Sodium Chloride 0.9% 1000 ML] 1,000 Med 01/21/18 15:00 Discontinued ml IV 50 mls/hr NaCl 0.9% 1000 ml [Sodium Chloride 0.9% 1000 ML] 1,000 Med 01/21/18 16:52 Discontinued ml IV 50 mls/hr Propylthiouracil 50 mg [Ptu 50Mg] Med 01/21/18 22:00 Discontinued 200 mg PO TID Rivaroxaban 10 mg Tablet [Xarelto 10 mg Tablet] Med 01/22/18 10:00 Discontinued 15 mg PO QAM EKG REPEAT IN AM RT 01/21/18 16:52 Completed Standby STAT RT 01/21/18 15:42 Completed Patient Care Notes (Last 24 hours) 01/22/18 08:57 Nursing Note by Maggy Chandler son at bedside. Initialized on 01/22/18 08:57 - END OF NOTE 01/22/18 08:09 Nursing Note by Maggy Chandler iv bleeding at insertion site, pt refuses to be stuck again. ivf dc'd. iv flushed without difficulty. Initialized on 01/22/18 08:09 - END OF NOTE 01/21/18 21:10 Nursing Note by Grecia Arcos Patient's 2200 dose of Propylthiouracil 200mg given from patient's home supply medication bottle. Medication was verified via [employer] with boiler house operator Dinorah before administration. Initialized on 01/21/18 21:10 - END OF NOTE 01/21/18 15:47 Respiratory Note by Yanira Norwood PER PROTOCAL PT RECEIVING ADENOCARD. [id number]. 2 DOSES GIVEN Initialized on 01/21/18 15:47 - END OF NOTE - Vitals & Intake/Output Vital Signs: Vital Signs Temperature 98.4 F 01/22/18 04:00 Pulse Rate 72 01/22/18 07:37 Respiratory Rate 19 01/22/18 07:37 Blood Pressure 152/59 01/22/18 07:37 O2 Sat by Pulse Oximetry 97 01/22/18 07:37 Intake & Output: Intake & Output 01/19/18 01/20/18 01/21/18 01/22/18 11:59 11:59 11:59 11:59 Intake Total 1740 Output Total 570 Balance 1170 Weight 54.6 kg - Lab Result Diagrams: 01/22/18 05:58 01/22/18 05:58 Lab Results-Last 24 Hrs: Lab Results-Last 24 Hours 01/21/18 01/21/18 01/21/18 Range/Units 15:05 15:05 15:05 WBC 5.9 (4.0-10.5) K/mm3 RBC 4.14 (4.1-5.4) M/mm3 Hgb 12.1 (12.0-16.0) gm/dl Hct 36.9 (35-47) % MCV 89.1 (78-100) fl MCH 29.2 (26-32) pg MCHC 32.8 (32-36) g/dl RDW 15.0 H (11.5-14.0) % Plt Count 201 (150-450) K/mm3 MPV 9.6 H (6-9.5) fl Gran % 74.9 H (36.0-66.0) % Eos # (Auto) 0 (0-0.5) Absolute Lymphs (auto) 0.87 L (1.0-4.6) Absolute Monos (auto) 0.61 (0.0-1.3) Lymphocytes % 14.6 L (24.0-44.0) % Monocytes % 10.3 (0.0-12.0) % Eosinophils % 0.0 (0.00-5.0) % Basophils % 0.2 (0.0-0.4) % Absolute Granulocytes 4.45 (1.4-6.9) Basophils # 0.01 (0-0.4) Sodium 140 (137-145) mmol/L Potassium 4.2 (3.5-5.1) mmol/L Chloride 109 H (98-107) mmol/L Carbon Dioxide 21 L (22-30) mmol/L Anion Gap 14.9 (5-15) MEQ/L BUN 22 H (7-17) mg/dL Creatinine 1.10 H (0.52-1.04) mg/dL Estimated GFR 49.9 ML/MIN Glucose 137 H (74-106) mg/dL Calcium 8.8 (8.4-10.2) mg/dL Total Bilirubin 0.30 (0.2-1.3) mg/dL AST 16 (14-36) U/L ALT 25 (0-35) U/L Alkaline Phosphatase 48 (38-126) U/L Troponin I < 0.012 (0.000-0.034) ng/mL NT-Pro-B Natriuret Pep 7280 H (0-1800) pg/mL Serum Total Protein 6.3 (6.3-8.2) g/dL Albumin 3.6 (3.5-5.0) g/dL 01/21/18 01/21/18 01/22/18 Range/Units 18:00 21:00 00:00 WBC (4.0-10.5) K/mm3 RBC (4.1-5.4) M/mm3 Hgb (12.0-16.0) gm/dl Hct (35-47) % MCV (78-100) fl MCH (26-32) pg MCHC (32-36) g/dl RDW (11.5-14.0) % Plt Count (150-450) K/mm3 MPV (6-9.5) fl Gran % (36.0-66.0) % Eos # (Auto) (0-0.5) Absolute Lymphs (auto) (1.0-4.6) Absolute Monos (auto) (0.0-1.3) Lymphocytes % (24.0-44.0) % Monocytes % (0.0-12.0) % Eosinophils % (0.00-5.0) % Basophils % (0.0-0.4) % Absolute Granulocytes (1.4-6.9) Basophils # (0-0.4) Sodium (137-145) mmol/L Potassium (3.5-5.1) mmol/L Chloride (98-107) mmol/L Carbon Dioxide (22-30) mmol/L Anion Gap (5-15) MEQ/L BUN (7-17) mg/dL Creatinine (0.52-1.04) mg/dL Estimated GFR ML/MIN Glucose (74-106) mg/dL Calcium (8.4-10.2) mg/dL Total Bilirubin (0.2-1.3) mg/dL AST (14-36) U/L ALT (0-35) U/L Alkaline Phosphatase (38-126) U/L Troponin I < 0.012 0.013 0.014 (0.000-0.034) ng/mL NT-Pro-B Natriuret Pep (0-1800) pg/mL Serum Total Protein (6.3-8.2) g/dL Albumin (3.5-5.0) g/dL 01/22/18 01/22/1801/22/18 Range/Units 03:00 05:58 05:58 WBC 5.9 (4.0-10.5) K/mm3 RBC 3.79 L (4.1-5.4) M/mm3 Hgb 11.1 L (12.0-16.0) gm/dl Hct 34.2 L (35-47) % MCV 90.2 (78-100) fl MCH 29.2 (26-32) pg MCHC 32.5 (32-36) g/dl RDW 15.3 H (11.5-14.0) % Plt Count 185 (150-450) K/mm3 MPV 9.7 H (6-9.5) fl Gran % (36.0-66.0) % Eos # (Auto) (0-0.5) Absolute Lymphs (auto) (1.0-4.6) Absolute Monos (auto) (0.0-1.3) Lymphocytes % (24.0-44.0) % Monocytes % (0.0-12.0) % Eosinophils % (0.00-5.0) % Basophils % (0.0-0.4) % Absolute Granulocytes (1.4-6.9) Basophils # (0-0.4) Sodium 140 (137-145) mmol/L Potassium 4.4 (3.5-5.1) mmol/L Chloride 112 H (98-107) mmol/L Carbon Dioxide 21 L (22-30) mmol/L Anion Gap 11.7 (5-15) MEQ/L BUN 18 H (7-17) mg/dL Creatinine 0.89 (0.52-1.04) mg/dL Estimated GFR > 60.0 ML/MIN Glucose 94 (74-106) mg/dL Calcium 8.5 (8.4-10.2) mg/dL Total Bilirubin 0.20 (0.2-1.3) mg/dL AST 18 (14-36) U/L ALT 23 (0-35) U/L Alkaline Phosphatase 47 (38-126) U/L Troponin I 0.016 (0.000-0.034) ng/mL NT-Pro-B Natriuret Pep (0-1800) pg/mL Serum Total Protein 5.6 L (6.3-8.2) g/dL Albumin 3.1 L (3.5-5.0) g/dL - Procedures and Test Procedures and Tests throughout Hospitalization: Therapy Orders & Screens 01/21/18 15:42 Standby STAT Comment: 01/21/18 16:52 EKG REPEAT IN AM Comment: - Discharge Discharge Date: 01/22/18 Disposition: Home, Self-Care Condition: Stable Prescriptions: Continue Amlodipine Besylate [Norvasc] 2.5 mg PO DAILY Rivaroxaban [Xarelto] 15 mg PO QAM Metoprolol Succinate 50 mg [Toprol Xl 50 MG] 50 mg PO BID Propylthiouracil 200 mg PO TID Aspirin EC 81 mg [Ecotrin 81 mg] 81 mg PO DAILY Instructions: Atrial Fibrillation (DC) Follow up with: DONN CHUN MD [Primary Care Provider] - 01/26/18 3:15 pm Forms: Discharge Instructions
== END 2018-01-22 09:35 | disposition home or self-care (01) ==
LOC: ED 14:37 → ICU 16:46
PROVIDERS: ADMIT General Practice; ATTEND General Practice
DX: I48.91 Unspecified atrial fibrillation (principal); R07.9 Chest pain, unspecified; Z79.01 Long term (current) use of anticoagulants; Z79.899 Other long term (current) drug therapy
CPT/HCPCS: 36415; 80053; 83880; 84484; 85025; 85027; 93005; 93041; 93268; 94799; 96360; 96361; 96365; 96366; 96374; 96375; 99285; J0153; A9270-GY; G0378

== ENCOUNTER 2018-04-25 22:23 | Observation (INO) | payer MEDICARE ==
[2018-04-25] MEDS ORDERED: Cardizem IV 50 MG/10 ML IV ONE ×2 (22:38→22:43)
[2018-04-25] MEDS ORDERED: CARDIZEM DRIP 100 MG/100 ML D5W 100 ML IV ONE (22:39)
[2018-04-25] MEDS ORDERED: CARDIZEM DRIP 100 MG/100 ML D5W 100 ML IV PRN (22:43)
[2018-04-25] MEDS ORDERED: Sodium Chloride 0.9% 1000 ML 1,000 ML IV SCH (22:45)
--- NOTE | 2018-04-25 22:47 | ERPHSYRPT ---
- History of Present Illness Time Seen by Provider: 04/25/18 22:34 Source: patient Exam Limitations: clinical condition Patient Subjective Stated Complaint: pt states she was feeling funny earlier today and could felt her heart beating quickly and felt like "it was skipping a beat." pt is in A-fib with RVR. pt heart rate irregular at 135 presently. Triage Nursing Assessment: see above Physician History: PATIENT WITH A HISTORY OF ATRIAL FIBRILLATION COMPLAINS OF PALPITATIONS SINCE 7PM TONIGHT ASSOCIATED WITH SUBSTERNAL PRESSURE. DENIES COUGH OR DYSPNEA, OR DIAPHORESIS. Timing/Duration: today Activities at Onset: none Quality: pressure Location: substernal Chest Pain Radiation: no radiation Severity of Pain-Max: mild Severity of Pain-Current: mild Modifying Factors: Improves With: movement Nitro Today/Relief: no nitro taken today Aspirin Treatment Today: no aspirin today Associated Symptoms: weakness Allergies/Adverse Reactions: amoxicillin [Amoxicillin] Allergy (Verified 01/21/18 15:02) dicyclomine HCl [From Bentyl] Allergy (Verified 01/21/18 15:02) levofloxacin [From Levaquin] Allergy (Verified 01/21/18 15:02) Penicillins Allergy (Verified 01/21/18 15:02) sulfamethoxazole [From Bactrim] Allergy (Verified 01/21/18 15:02) Home Medications: Amlodipine Besylate [Norvasc] 2.5 mg PO DAILY 01/21/18 [History] Aspirin EC 81 mg [Ecotrin 81 mg] 81 mg PO DAILY 01/21/18 [History] Metoprolol Succinate 50 mg [Toprol Xl 50 MG] 75 mg PO BID 01/21/18 [ History] Rivaroxaban [Xarelto] 15 mg PO QAM 01/21/18 [History] Hx Tetanus, Diphtheria Vaccination/Date Given: Yes Hx Influenza Vaccination/Date Given: Yes Hx Pneumococcal Vaccination/Date Given: Yes Immunizations Up to Date: Yes - Review of Systems Constitutional: No Fever, No Chills Eyes: No Symptoms Ears, Nose, & Throat: No Symptoms Respiratory: No Symptoms, No Cough, No Dyspnea Cardiac: Palpitations, No Chest Pain, No Edema, No Syncope Abdominal/Gastrointestinal: No Symptoms, No Abdominal Pain, No Nausea, No Vomiting, No Diarrhea Genitourinary Symptoms: No Symptoms, No Dysuria Musculoskeletal: No Back Pain, No Neck Pain Skin: No Rash Neurological: No Dizziness, No Focal Weakness, No Sensory Changes Psychological: No Symptoms Endocrine: No Symptoms All Other Systems: Reviewed and Negative - Past Medical History Pertinent Past Medical History: Yes Neurological History: No Pertinent History ENT History: Cataracts Cardiac History: Arrhythmia Respiratory History: No Pertinent History Endocrine Medical History: No Pertinent History, Other Musculoskeletal History: No Pertinent History GI Medical History: No Pertinent History History: No Pertinent History Psycho-Social History: No Pertinent History Female Reproductive Disorders: No Pertinent History Other Medical History: pacemaker placed 2016. goiter - Past Surgical History Past Surgical History: Yes Neuro Surgical History: No Pertinent History Cardiac: No Pertinent History Respiratory: No Pertinent History Gastrointestinal: No Pertinent History Genitourinary: No Pertinent History Female Surgical History: Hysterectomy, Other Other Surgical History: cyst removed from right breast, hyst 10 years ago, cataract surgery 2 years ago - Social History Smoking Status: Never smoker Exposure to second hand smoke: No Drug Use: none Patient Lives Alone: Yes - Female History Hx Now: No - Nursing Vital Signs Nursing Vital Signs: Initial Vital Signs Pulse Rate 129 H 04/25/18 22:24 Respiratory Rate 22 04/25/18 22:24 Blood Pressure 154/101 04/25/18 22:24 O2 Sat by Pulse Oximetry 98 04/25/18 22:24 Pain Scale Pain Intensity 0 - Physical Exam General Appearance: no apparent distress, alert Eye Exam: PERRL/EOMI, eyes nml inspection Ears, Nose, Throat Exam: normal ENT inspection, moist mucous membranes Neck Exam: normal inspection, non-tender, supple Respiratory Exam: normal breath sounds, lungs clear, No respiratory distress Cardiovascular Exam: normal heart sounds, tachycardia, irregular, No edema Gastrointestinal/Abdomen Exam: soft, No tenderness, No mass Back Exam: normal inspection, No CVA tenderness, No vertebral tenderness Extremity Exam: normal inspection, normal range of motion Neurologic Exam: alert, oriented x 3, cooperative, normal mood/affect, nml cerebellar function, sensation nml, No motor deficits Skin Exam: normal color, warm, dry Lymphatic Exam: No adenopathy SpO2: 98 Oxygen Delivery: Nasal Cannula - Course EKG Interpreted by Me: RATE, A-fib, NORMAL AXIS - Radiology Exams Chest X-ray Interpretation: Interpreted by me, No Infiltrates (PACEMAKER LEFT HEMITHORAX) Ordered Tests: Active Orders 24 hr Category Date Time Status Keeper Helper STAT Care 04/25/18 22:41 Active EKG-ER Only STAT Care 04/25/18 22:40 Active IV Insertion STAT Care 04/25/18 22:40 Active IV Insertion-2nd Peripheral STAT Care 04/25/18 22:44 Active Oxygen-ED Only NASAL CANNULA 2 lpm Care 04/25/18 22:40 Active CHEST 1 VIEW (PORTABLE) Stat Exams 04/25/18 22:41 Taken CBC W DIFF Stat Lab 04/25/18 22:44 Completed CMP Stat Lab 04/25/18 22:44 Completed NT PRO BNP Stat Lab 04/25/18 22:44 Completed PROTIME WITH INR Stat Lab 04/25/18 22:44 Completed TROPONIN Q3H Lab 04/25/18 22:44 Completed TROPONIN Q3H Lab 04/26/18 01:45 Ordered TROPONIN Q3H Lab 04/26/18 04:45 Ordered TROPONIN Q3H Lab 04/26/18 07:45 Ordered TROPONIN Q3H Lab 04/26/18 10:45 Ordered Medication Summary Generic Name Dose Route Start Last Admin Trade Name Freq PRN Reason Stop Dose Admin Sodium Chloride 1,000 mls @ 50 mls/hr 04/25/18 22:45 04/25/18 23:10 Sodium Chloride 0.9% 1000 Ml IV 05/25/18 22:44 50 mls/hr .Q20H KAYLA Administration Diltiazem HCl 100 mls @ 10 mls/hr 04/25/18 22:43 04/25/18 23:10 Cardizem Drip 100 Mg/100 Ml D5w IV 05/25/18 22:42 10 mg/hr .Q10H PRN 10 mls/hr HEART RATE/ A-FIB Administration Protocol 10 MG/HR Discontinued Medications Generic Name Dose Route Start Last Admin Trade Name Freq PRN Reason Stop Dose Admin Diltiazem HCl Confirm 04/25/18 22:38 Cardizem Iv 50 Mg/10 Ml Administered 04/25/18 22:39 Dose 50 mg IV .STK-MED ONE Diltiazem HCl 15 mg 04/25/18 22:43 04/25/18 22:47 Cardizem Iv 50 Mg/10 Ml IV 04/25/18 22:44 15 mg STAT ONE Administration Diltiazem HCl Confirm 04/25/18 22:39 Cardizem Drip 100 Mg/100 Ml D5w Administered 04/25/18 22:40 Dose 100 mls @ ud IV .STK-MED ONE Lab/Rad Data: Laboratory Result Diagrams 04/25/18 22:44 04/25/18 22:44 Laboratory Results 04/25/18 04/25/18 04/25/18 Range/Units 22:44 22:44 22:44 WBC (4.0-10.5) K/mm3 RBC (4.1-5.4) M/mm3 Hgb (12.0-16.0) gm/dl Hct (35-47) % MCV (78-100) fl MCH (26-32) pg MCHC (32-36) g/dl RDW (11.5-14.0) % Plt Count (150-450) K/mm3 MPV (6-9.5) fl Gran % (36.0-66.0) % Eos # (Auto) (0-0.5) Absolute Lymphs (auto) (1.0-4.6) Absolute Monos (auto) (0.0-1.3) Lymphocytes % (24.0-44.0) % Monocytes % (0.0-12.0) % Eosinophils % (0.00-5.0) % Basophils % (0.0-0.4) % Absolute Granulocytes (1.4-6.9) Basophils # (0-0.4) PT 11.9 (9.95-12.35) SECONDS INR 1.02 (0.8-3.0) Sodium 141 (137-145) mmol/L Potassium 4.7 (3.5-5.1) mmol/L Chloride 108 H (98-107) mmol/L Carbon Dioxide 22 (22-30) mmol/L Anion Gap 16.5 H (5-15) MEQ/L BUN 24 H (7-17) mg/dL Creatinine 1.02 (0.52-1.04) mg/dL Estimated GFR 54.4 ML/MIN Glucose 129 H (74-106) mg/dL Calcium 9.6 (8.4-10.2) mg/dL Total Bilirubin 0.30 (0.2-1.3) mg/dL AST 28 (14-36) U/L ALT 14 (0-35) U/L Alkaline Phosphatase 47 (38-126) U/L Troponin I < 0.012 (0.000-0.034) ng/mL NT-Pro-B Natriuret Pep 1350 (0-1800) pg/mL Serum Total Protein 7.3 (6.3-8.2) g/dL Albumin 4.4 (3.5-5.0) g/dL 04/25/18 Range/Units 22:44 WBC 6.1 (4.0-10.5) K/mm3 RBC 4.59 (4.1-5.4) M/mm3 Hgb 13.5 (12.0-16.0) gm/dl Hct 41.8 (35-47) % MCV 91.1 (78-100) fl MCH 29.4 (26-32) pg MCHC 32.3 (32-36) g/dl RDW 14.9 H (11.5-14.0) % Plt Count 220 (150-450) K/mm3 MPV 9.7 H (6-9.5) fl Gran % 56.5 (36.0-66.0) % Eos # (Auto) 0.01 (0-0.5) Absolute Lymphs (auto) 1.73 (1.0-4.6) Absolute Monos (auto) 0.91 (0.0-1.3) Lymphocytes % 28.2 (24.0-44.0) % Monocytes % 14.8 H (0.0-12.0) % Eosinophils % 0.2 (0.00-5.0) % Basophils % 0.3 (0.0-0.4) % Absolute Granulocytes 3.46 (1.4-6.9) Basophils # 0.02 (0-0.4) PT (9.95-12.35) SECONDS INR (0.8-3.0) Sodium (137-145) mmol/L Potassium (3.5-5.1) mmol/L Chloride (98-107) mmol/L Carbon Dioxide (22-30) mmol/L Anion Gap (5-15) MEQ/L BUN (7-17) mg/dL Creatinine (0.52-1.04) mg/dL Estimated GFR ML/MIN Glucose (74-106) mg/dL Calcium (8.4-10.2) mg/dL Total Bilirubin (0.2-1.3) mg/dL AST (14-36) U/L ALT (0-35) U/L Alkaline Phosphatase (38-126) U/L Troponin I (0.000-0.034) ng/mL NT-Pro-B Natriuret Pep (0-1800) pg/mL Serum Total Protein (6.3-8.2) g/dL Albumin (3.5-5.0) g/dL - Progress Progress: improved Progress Note: 04/26/18 00:26 IV NORMAL SALINE 50ML/HR, CARDIZEM 15MG IV FOLLOWED BY CARDIZEM INFUSION 10MG/ HR RATE IMPROVED TO RATE 72 VENTRICULAR PACED Discussed with : Diana (DISCUSSED WITH DR CHUN AT 2300 FOR OBSERVATION) Counseled pt/family regarding: lab results - Departure Time of Disposition: 00:32 Departure Disposition: Observation Clinical Impression: RAPID ATRIAL FIBRILLATION RVR Condition: Stable Critical Care Time: Yes Critical Care Time(excluding separately billable procedures): ___ minutes (30) Referrals: DONN CHUN MD [Primary Care Provider] -
[2018-04-25] MEDS ORDERED: Sodium Chloride 0.9% 1000 ML 1,000 ML ONE (22:56)
[2018-04-25 23:16] LABS: BASOPHIL % 0.3 % (0.0-0.4); Basophil (Absolute #) 0.02 (0-0.4); Eosinophil % 0.2 % (0.00-5.0); Eosinophil (Absolute #) 0.01 (0-0.5); Granulocyte Absolute (ANC) 3.46 (1.4-6.9); Granulocytes % 56.5 % (36.0-66.0); Hematocrit 41.8 % (35-47); Hemoglobin 13.5 gm/dl (12.0-16.0); Lymphocyte (Absolute #) 1.73 (1.0-4.6); Lymphocytes % 28.2 % (24.0-44.0); Mean Cell Volume 91.1 fl (78-100); Mean Corpuscular Hemoglobin 29.4 pg (26-32); Mean Corpuscular Hgb Concent. 32.3 g/dl (32-36); Mean Platelet Volume 9.7 fl (6-9.5); Monocyte (Absolute #) 0.91 (0.0-1.3); Monocytes % 14.8 % (0.0-12.0); Platelet Count 220 K/mm3 (150-450); Red Blood Count 4.59 M/mm3 (4.1-5.4); Red Cell Distribution Width 14.9 % (11.5-14.0); White Blood Count 6.1 K/mm3 (4.0-10.5)
[2018-04-25 23:22] LABS: INR 1.02 (0.8-3.0)
[2018-04-25 23:31] LABS: ALBUMIN 4.4 g/dL (3.5-5.0); ANION GAP 16.5 MEQ/L (5-15); BILIRUBIN,TOTAL 0.3 mg/dL (0.2-1.3); Calcium 9.6 mg/dL (8.4-10.2); Creatinine 1 1.02 mg/dL (0.52-1.04); Potassium 4.7 mmol/L (3.5-5.1); Total Protein 7.3 g/dL (6.3-8.2)
[2018-04-26] MEDS ORDERED: Sodium Chloride 0.9% 500 ML 500 ML IV SCH (00:45)
[2018-04-26] MEDS ORDERED: Sodium Chloride 0.9% 10 ML FLUSH Syringe IV PRN (08:26)
--- NOTE | 2018-04-26 08:51 | XRAY ---
Indication: Dyspnea. Comparison: December 06, 2015. Portable chest again demonstrates normal heart and lungs with a few incidental calcified granulomas and left-sided dual-lead pacemaker. Bony thorax intact again with mild osteopenia and degenerative changes. No new/acute findings.
[2018-04-26] MEDS ORDERED: ECOTRIN 81 MG PO SCH (10:00)
[2018-04-26] MEDS ORDERED: NORVASC 5 MG PO SCH (10:00)
[2018-04-26] MEDS ORDERED: SYNTHROID 50 MCG PO SCH (10:00)
[2018-04-26] MEDS ORDERED: Lopressor 50 MG PO SCH (10:00)
[2018-04-26 12:02] VITALS: BP 141/66; PULSE 71; O2SAT 96
--- NOTE | 2018-04-26 12:31 | PCM.SSS ---
History of Present Illness - Chief Complaint Chief Complaint: palpitations for 1 day History of Present Illness: is a 88 year old female states she was feeling funny earlier today and could felt her heart beating quickly and felt like "it was skipping a beat." - Review of Systems Constitutional: No Fever, No Chills Eyes: No Symptoms Ears, Nose, & Throat: No Symptoms Respiratory: No Cough, No Short Of Breath Cardiac: Palpitations, No Chest Pain, No Edema, No Syncope Abdominal/Gastrointestinal: No Abdominal Pain, No Nausea, No Vomiting, No Diarrhea Genitourinary Symptoms: No Dysuria Musculoskeletal: No Back Pain, No Neck Pain Skin: No Rash Neurological: No Dizziness, No Focal Weakness, No Sensory Changes Psychological: No Symptoms Endocrine: No Symptoms Hematologic/Lymphatic: No Symptoms Immunological/Allergic: No Symptoms Medications & Allergies Home Medications: Home Medication List Amlodipine Besylate [Norvasc] 2.5 mg PO DAILY 01/21/18 [History Confirmed ] Aspirin EC 81 mg [Ecotrin 81 mg] 81 mg PO DAILY 01/21/18 [History Confirmed 04/26/18] Rivaroxaban [Xarelto] 15 mg PO EVENING MEAL 01/21/18 [History Confirmed 04/26/18 ] Levothyroxine Sodium 50 Mcg [Synthroid 50 Mcg] 50 mcg PO DAILY 04/26/18 [ History Confirmed 04/26/18] Metoprolol Tartrate 75 mg PO BID 04/26/18 [History Confirmed 04/26/18] Allergies/Adverse Reactions: Allergies Allergy/AdvReac Type Severity Reaction Status Date / Time amoxicillin [Amoxicillin] Allergy Verified 01/21/18 15:02 dicyclomine HCl [From Bentyl] Allergy Verified 01/21/18 15:02 levofloxacin [From Levaquin] Allergy Verified 01/21/18 15:02 Penicillins Allergy Verified 01/21/18 15:02 sulfamethoxazole Allergy Verified 01/21/18 15:02 [From Bactrim] - Past Medical History Past Medical History: Yes Neurological History: No Pertinent History ENT History: Cataracts Cardiac History: Arrhythmia Respiratory History: No Pertinent History Endocrine Medical History: No Pertinent History, Other Musculoskelatal History: No Pertinent History GI Medical History: No Pertinent History History: No Pertinent History Pyscho-Social History: No Pertinent History Reproductive Disorders: No Pertinent History Comment: pacemaker placed 2016. goiter - Female History Hx Last Menstrual Period: POST MENAPASAL Are you now?: No - Past Surgical History Past Surgical History: Yes Neuro Surgical History: No Pertinent History Cardiac History: No Pertinent History Respiratory Surgery: No Pertinent History GI Surgical History: No Pertinent History Genitourinary Surgical Hx: No Pertinent History Female Surgical History: Hysterectomy, Other Other Surgical History: cyst removed from right breast, hyst 10 years ago, cataract surgery 2 years ago - Social History Smoking Status: Never smoker Exposure to second hand smoke: No Alcohol: None Drug Use: none - Physical Exam Vital Signs: Vital Signs - 24 hr Temp Pulse Pulse Resp BP Pulse Ox 04/26/18 11:53 96.3 F 71 17 141/66 96 04/26/18 08:00 70 18 138/88 97 04/26/18 07:30 70 18 95 04/26/18 07:24 70 04/26/18 07:00 71 18 157/79 77 L 04/26/18 06:00 71 16 142/54 96 04/26/18 05:07 75 20 134/78 97 04/26/18 04:04 97.4 F 71 18 139/63 96 04/26/18 03:13 72 18 122/68 95 04/26/18 02:30 71 20 134/55 98 04/26/18 02:00 70 14 140/55 97 04/26/18 01:45 97.3 F 70 16 127/56 99 04/26/18 01:30 70 15 127/56 04/26/18 01:17 70 04/26/18 01:15 80 99 04/26/18 01:10 97.3 F 71 16 134/58 04/26/18 00:28 98 04/25/18 23:50 71 20 116/59 99 04/25/18 23:04 108 H 20 104/65 98 04/25/18 22:24 135 H 129 H 22 154/101 98 Oxygen-Last 24 hours O2 Percentage 2 Liters = 28% O2 Percentage 2 Liters = 28% O2 Percentage 2 Liters = 28% O2 Percentage 2 Liters = 28% O2 Percentage 2 Liters = 28% O2 Percentage 2 Liters = 28% General Appearance: no apparent distress, alert Neurologic Exam: alert, oriented x 3, cooperative, normal mood/affect, nml cerebellar function, nml station & gait, sensation nml, No motor deficits Eye Exam: PERRL/EOMI, eyes nml inspection Ears, Nose, Throat Exam: normal ENT inspection, TMs normal, pharynx normal, moist mucous membranes Neck Exam: normal inspection, non-tender, supple, full range of motion Respiratory Exam: normal breath sounds, lungs clear, No respiratory distress Cardiovascular Exam: regular rate/rhythm, normal heart sounds, normal peripheral pulses Gastrointestinal/Abdomen Exam: soft, normal bowel sounds, No tenderness, No mass Back Exam: normal inspection, normal range of motion, No CVA tenderness, No vertebral tenderness Extremity Exam: normal inspection, normal range of motion, pelvis stable Skin Exam: normal color, warm, dry, No rash Lymphatic Exam: No adenopathy Results - Labs Lab/Micro Results: Lab Results-Last 24 Hours 04/25/18 04/25/18 04/25/18 Range/Units 22:44 22:44 22:44 WBC 6.1 (4.0-10.5) K/mm3 RBC 4.59 (4.1-5.4) M/mm3 Hgb 13.5 (12.0-16.0) gm/dl Hct 41.8 (35-47) % MCV 91.1 (78-100) fl MCH 29.4 (26-32) pg MCHC 32.3 (32-36) g/dl RDW 14.9 H (11.5-14.0) % Plt Count 220 (150-450) K/mm3 MPV 9.7 H (6-9.5) fl Gran % 56.5 (36.0-66.0) % Eos # (Auto) 0.01 (0-0.5) Absolute Lymphs (auto) 1.73 (1.0-4.6) Absolute Monos (auto) 0.91 (0.0-1.3) Lymphocytes % 28.2 (24.0-44.0) % Monocytes % 14.8 H (0.0-12.0) % Eosinophils % 0.2 (0.00-5.0) % Basophils % 0.3 (0.0-0.4) % Absolute Granulocytes 3.46 (1.4-6.9) Basophils # 0.02 (0-0.4) PT 11.9 (9.95-12.35) SECONDS INR 1.02 (0.8-3.0) Sodium 141 (137-145) mmol/L Potassium 4.7 (3.5-5.1) mmol/L Chloride 108 H (98-107) mmol/L Carbon Dioxide 22 (22-30) mmol/L Anion Gap 16.5 H (5-15) MEQ/L BUN 24 H (7-17) mg/dL Creatinine 1.02 (0.52-1.04) mg/dL Estimated GFR 54.4 ML/MIN Glucose 129 H (74-106) mg/dL Calcium 9.6 (8.4-10.2) mg/dL Total Bilirubin 0.30 (0.2-1.3) mg/dL AST 28 (14-36) U/L ALT 14 (0-35) U/L Alkaline Phosphatase 47 (38-126) U/L Troponin I (0.000-0.034) ng/mL NT-Pro-B Natriuret Pep 1350 (0-1800) pg/mL Serum Total Protein 7.3 (6.3-8.2) g/dL Albumin 4.4 (3.5-5.0) g/dL 04/25/18 04/26/18 04/26/18 Range/Units 22:44 02:10 05:00 WBC (4.0-10.5) K/mm3 RBC (4.1-5.4) M/mm3 Hgb (12.0-16.0) gm/dl Hct (35-47) % MCV (78-100) fl MCH (26-32) pg MCHC (32-36) g/dl RDW (11.5-14.0) % Plt Count (150-450) K/mm3 MPV (6-9.5) fl Gran % (36.0-66.0) % Eos # (Auto) (0-0.5) Absolute Lymphs (auto) (1.0-4.6) Absolute Monos (auto) (0.0-1.3) Lymphocytes % (24.0-44.0) % Monocytes % (0.0-12.0) % Eosinophils % (0.00-5.0) % Basophils % (0.0-0.4) % Absolute Granulocytes (1.4-6.9) Basophils # (0-0.4) PT (9.95-12.35) SECONDS INR (0.8-3.0) Sodium (137-145) mmol/L Potassium (3.5-5.1) mmol/L Chloride (98-107) mmol/L Carbon Dioxide (22-30) mmol/L Anion Gap (5-15) MEQ/L BUN (7-17) mg/dL Creatinine (0.52-1.04) mg/dL Estimated GFR ML/MIN Glucose (74-106) mg/dL Calcium (8.4-10.2) mg/dL Total Bilirubin (0.2-1.3) mg/dL AST (14-36) U/L ALT (0-35) U/L Alkaline Phosphatase (38-126) U/L Troponin I < 0.012 < 0.012 0.020 (0.000-0.034) ng/mL NT-Pro-B Natriuret Pep (0-1800) pg/mL Serum Total Protein (6.3-8.2) g/dL Albumin (3.5-5.0) g/dL 04/26/18 04/26/18 Range/Units 07:50 10:45 WBC (4.0-10.5) K/mm3 RBC (4.1-5.4) M/mm3 Hgb (12.0-16.0) gm/dl Hct (35-47) % MCV (78-100) fl MCH (26-32) pg MCHC (32-36) g/dl RDW (11.5-14.0) % Plt Count (150-450) K/mm3 MPV (6-9.5) fl Gran % (36.0-66.0) % Eos # (Auto) (0-0.5) Absolute Lymphs (auto) (1.0-4.6) Absolute Monos (auto) (0.0-1.3) Lymphocytes % (24.0-44.0) % Monocytes % (0.0-12.0) % Eosinophils % (0.00-5.0) % Basophils % (0.0-0.4) % Absolute Granulocytes (1.4-6.9) Basophils # (0-0.4) PT (9.95-12.35) SECONDS INR (0.8-3.0) Sodium (137-145) mmol/L Potassium (3.5-5.1) mmol/L Chloride (98-107) mmol/L Carbon Dioxide (22-30) mmol/L Anion Gap (5-15) MEQ/L BUN (7-17) mg/dL Creatinine (0.52-1.04) mg/dL Estimated GFR ML/MIN Glucose (74-106) mg/dL Calcium (8.4-10.2) mg/dL Total Bilirubin (0.2-1.3) mg/dL AST (14-36) U/L ALT (0-35) U/L Alkaline Phosphatase (38-126) U/L Troponin I 0.020 0.015 (0.000-0.034) ng/mL NT-Pro-B Natriuret Pep (0-1800) pg/mL Serum Total Protein (6.3-8.2) g/dL Albumin (3.5-5.0) g/dL - Radiology Impressions Radiology Exams & Impressions: Radiology Procedures Category Date Time Status CHEST 1 VIEW (PORTABLE) Stat Exams 04/25/18 22:41 Completed - Other Procedures and Tests Respiratory Therapy 04/27/18 05:00 EKG DAILY 04/28/18 05:00 EKG DAILY 04/29/18 05:00 EKG DAILY Assessment/Plan (1) Atrial fibrillation with rapid ventricular response Current Visit: Yes Status: Resolved Assessment & Plan: Last Vital Signs Temp 96.3 F 04/26/18 11:53 Pulse 71 04/26/18 11:53 Resp 17 04/26/18 11:53 BP 141/66 04/26/18 11:53 Pulse Ox 96 04/26/18 11:53 Allergies amoxicillin [Amoxicillin] Allergy (Verified 01/21/18 15:02) dicyclomine HCl [From Bentyl] Allergy (Verified 01/21/18 15:02) levofloxacin [From Levaquin] Allergy (Verified 01/21/18 15:02) Penicillins Allergy (Verified 01/21/18 15:02) sulfamethoxazole [From Bactrim] Allergy (Verified 01/21/18 15:02) Active Medications Amlodipine Besylate (Norvasc 5 Mg) 2.5 mg PO QAM KAYLA Stop: 05/26/18 09:59 Last Admin: 04/26/18 09:11 Dose: 2.5 mg Aspirin (Ecotrin 81 Mg) 81 mg PO DAILY [facility] Stop: 05/26/18 09:59 Last Admin: 04/26/18 09:12 Dose: 81 mg Levothyroxine Sodium (Synthroid 50 Mcg) 50 mcg PO DAILY [facility] Stop: 05/26/18 09:59 Last Admin: 04/26/18 09:09 Dose: 50 mcg Metoprolol Tartrate (Lopressor 50 Mg) 75 mg PO BID KAYLA Stop: 05/26/18 09:59 Last Admin: 04/26/18 09:12 Dose: 75 mg Rivaroxaban (Xarelto 10 Mg Tablet) 15 mg PO DAILY AT 1800 [facility] Stop: 05/26/18 17:59 Sodium Chloride (Sodium Chloride 0.9% 10 Ml Flush Syringe) 10 ml IV Q8HT [facility] Stop: 05/26/18 13:59 Sodium Chloride (Sodium Chloride 0.9% 10 Ml Flush Syringe) 10 ml IV PRN PRN PRN Reason: FLUSH Stop: 05/26/18 08:25 Intake & Output 04/26/18 04/27/18 11:59 11:59 Intake Total 1112 Output Total 900 Balance 212 Weight 53.6 kg Orders 04/26/18 00:45 Bedrest with BRP/BSC TOLERATED [employer] CONTINUOUS Code Status Order ROUTINE Implement Chest Pain Pathway ROUTINE Intake and Output Q12H Vital Signs Q4H Weight,Daily 0600 04/26/18 08:26 NaCl 0.9% 10 ML FLUSH [Sodium Chloride 0.9% 10 ML FLUSH Syringe] 10 ml IV PRN PRN 04/26/18 10:00 Aspirin EC 81 mg [Ecotrin 81 mg] 81 mg PO DAILY Levothyroxine Sodium 50 Mcg [Synthroid 50 Mcg] 50 mcg PO DAILY 04/26/18 14:00 NaCl 0.9% 10 ML FLUSH [Sodium Chloride 0.9% 10 ML FLUSH Syringe] 10 ml IV Q8HT 04/26/18 Lunch Cardiac Diet 04/27/18 05:00 EKG DAILY 04/28/18 05:00 EKG DAILY 04/29/18 05:00 EKG DAILY Lab Tests 04/25/18 04/25/1804/25/18 22:44 22:44 22:44 WBC 6.1 RBC 4.59 Hgb 13.5 Hct 41.8 MCV 91.1 MCH 29.4 MCHC 32.3 RDW 14.9 H Plt Count 220 MPV 9.7 H Gran % 56.5 Eos # (Auto) 0.01 Absolute Lymphs (auto) 1.73 Absolute Monos (auto) 0.91 Lymphocytes % 28.2 Monocytes % 14.8 H Eosinophils % 0.2 Basophils % 0.3 Absolute Granulocytes 3.46 Basophils # 0.02 PT 11.9 INR 1.02 Sodium 141 Potassium 4.7 Chloride 108 H Carbon Dioxide 22 Anion Gap 16.5 H BUN 24 H Creatinine 1.02 Estimated GFR 54.4 Glucose 129 H Calcium 9.6 Total Bilirubin 0.30 AST 28 ALT 14 Alkaline Phosphatase 47 Troponin I NT-Pro-B Natriuret Pep 1350 Serum Total Protein 7.3 Albumin 4.4 04/25/18 04/26/18 04/26/18 22:44 02:10 05:00 WBC RBC Hgb Hct MCV MCH MCHC RDW Plt Count MPV Gran % Eos # (Auto) Absolute Lymphs (auto) Absolute Monos (auto) Lymphocytes % Monocytes % Eosinophils % Basophils % Absolute Granulocytes Basophils # PT INR Sodium Potassium Chloride Carbon Dioxide Anion Gap BUN Creatinine Estimated GFR Glucose Calcium Total Bilirubin AST ALT Alkaline Phosphatase Troponin I < 0.012 < 0.012 0.020 NT-Pro-B Natriuret Pep Serum Total Protein Albumin 04/26/18 04/26/18 07:50 10:45 WBC RBC Hgb Hct MCV MCH MCHC RDW Plt Count MPV Gran % Eos # (Auto) Absolute Lymphs (auto) Absolute Monos (auto) Lymphocytes % Monocytes % Eosinophils % Basophils % Absolute Granulocytes Basophils # PT INR Sodium Potassium Chloride Carbon Dioxide Anion Gap BUN Creatinine Estimated GFR Glucose Calcium Total Bilirubin AST ALT Alkaline Phosphatase Troponin I 0.020 0.015 NT-Pro-B Natriuret Pep Serum Total Protein Albumin Code(s): I48.91 - UNSPECIFIED ATRIAL FIBRILLATION Hospital Summary - Hospital Course Hospital Course: Chief Complaint Diagnosis A FIB RVR Allergies Allergy/AdvReac Type Severity Reaction Status Date / Time amoxicillin [Amoxicillin] Allergy Verified 01/21/18 15:02 dicyclomine HCl [From Bentyl] Allergy Verified 01/21/18 15:02 levofloxacin [From Levaquin] Allergy Verified 01/21/18 15:02 Penicillins Allergy Verified 01/21/18 15:02 sulfamethoxazole Allergy Verified 01/21/18 15:02 [From Bactrim] Vital Signs (Last 24 hours) Temp Pulse Pulse Resp BP Pulse Ox 04/26/18 11:53 96.3 F 71 17 141/66 96 04/26/18 08:00 70 18 138/88 97 04/26/18 07:30 70 18 95 04/26/18 07:24 70 04/26/18 07:00 71 18 157/79 77 L 04/26/18 06:00 71 16 142/54 96 04/26/18 05:07 75 20 134/78 97 04/26/18 04:04 97.4 F 71 18 139/63 96 04/26/18 03:13 72 18 122/68 95 04/26/18 02:30 71 20 134/55 98 04/26/18 02:00 70 14 140/55 97 04/26/18 01:45 97.3 F 70 16 127/56 99 04/26/18 01:30 70 15 127/56 04/26/18 01:17 70 04/26/18 01:15 80 99 04/26/18 01:10 97.3 F 71 16 134/58 04/26/18 00:28 98 04/25/18 23:50 71 20 116/59 99 04/25/18 23:04 108 H 20 104/65 98 04/25/18 22:24 135 H 129 H 22 154/101 98 Home Medications Medication Instructions Recorded Confirmed Last Taken Type Levothyroxine Sodium 50 Mcg 50 mcg PO DAILY 04/26/18 04/26/18 04/25/18 History [Synthroid 50 Mcg] Metoprolol Tartrate 75 mg PO BID 04/26/18 04/26/18 04/25/18 History Current Medications Generic Name Dose Route Start Last Admin Trade Name Freq PRN Reason Stop Dose Admin Amlodipine Besylate 2.5 mg 04/26/18 10:00 04/26/18 09:11 Norvasc 5 Mg PO 05/26/18 09:59 2.5 mg QAM KAYLA Administration Aspirin 81 mg 04/26/18 10:00 04/26/18 09:12 Ecotrin 81 Mg PO 05/26/18 09:59 81 mg DAILY KAYLA Administration Levothyroxine Sodium 50 mcg 04/26/18 10:00 04/26/18 09:09 Synthroid 50 Mcg PO 05/26/18 09:59 50 mcg DAILY KAYLA Administration Metoprolol Tartrate 75 mg 04/26/18 10:00 04/26/18 09:12 Lopressor 50 Mg PO 05/26/18 09:59 75 mg BID KAYLA Administration Rivaroxaban 15 mg 04/26/18 18:00 Xarelto 10 Mg Tablet PO 05/26/18 17:59 DAILY AT 1800 [facility] Sodium Chloride 10 ml 04/26/18 14:00 Sodium Chloride 0.9% 10 Ml Flush Syringe IV 05/26/18 13:59 Q8HT KAYLA Sodium Chloride 10 ml 04/26/18 08:26 Sodium Chloride 0.9% 10 Ml Flush Syringe IV 05/26/18 08:25 PRN PRN FLUSH Discontinued Medications Generic Name Dose Route Start Last Admin Trade Name Freq PRN Reason Stop Dose Admin Diltiazem HCl Confirm 04/25/18 22:38 Cardizem Iv 50 Mg/10 Ml Administered 04/25/18 22:39 Dose 50 mg IV .STK-MED ONE Diltiazem HCl 15 mg 04/25/18 22:43 04/25/18 22:47 Cardizem Iv 50 Mg/10 Ml IV 04/25/18 22:44 15 mg STAT ONE Administration Diltiazem HCl Confirm 04/25/18 22:39 Cardizem Drip 100 Mg/100 Ml D5w Administered 04/25/18 22:40 Dose 100 mls @ ud IV .STK-MED ONE Sodium Chloride 1,000 mls @ 50 mls/hr 04/25/18 22:45 04/25/18 23:10 Sodium Chloride 0.9% 1000 Ml IV 05/25/18 22:44 50 mls/hr .Q20H KAYLA Administration Diltiazem HCl 100 mls @ 10 mls/hr 04/25/18 22:43 04/25/18 23:10 Cardizem Drip 100 Mg/100 Ml D5w IV 05/25/18 22:42 10 mg/hr .Q10H PRN 10 mls/hr HEART RATE/ A-FIB Administration Protocol 10 MG/HR Sodium Chloride 500 mls @ 20 mls/hr 04/26/18 00:45 04/26/18 03:05 Sodium Chloride 0.9% 500 Ml IV 05/26/18 00:44 Not Given .Q24H KAYLA Sodium Chloride Confirm 04/25/18 22:56 Sodium Chloride 0.9% 1000 Ml Administered 04/25/18 22:57 Dose 1,000 mls @ ud .ROUTE .[facility]-MED ONE Intake & Output (Last 24 hours) 04/24/18 04/25/18 04/26/18 04/27/18 11:59 11:59 11:59 11:59 Intake Total 1112 Output Total 900 Balance 212 Weight 53.6 kg Laboratory Results (Last 24 hours) 04/26/18 04/26/18 04/26/18 10:45 07:50 05:00 WBC RBC Hgb Hct MCV MCH MCHC RDW Plt Count MPV Gran % Eos # (Auto) Absolute Lymphs (auto) Absolute Monos (auto) Lymphocytes % Monocytes % Eosinophils % Basophils % Absolute Granulocytes Basophils # PT INR Sodium Potassium Chloride Carbon Dioxide Anion Gap BUN Creatinine Estimated GFR Glucose Calcium Total Bilirubin AST ALT Alkaline Phosphatase Troponin I 0.015 0.020 0.020 NT-Pro-B Natriuret Pep Serum Total Protein Albumin 04/26/18 04/25/18 04/25/18 02:10 22:44 22:44 WBC RBC Hgb Hct MCV MCH MCHC RDW Plt Count MPV Gran % Eos # (Auto) Absolute Lymphs (auto) Absolute Monos (auto) Lymphocytes % Monocytes % Eosinophils % Basophils % Absolute Granulocytes Basophils # PT 11.9 INR 1.02 Sodium Potassium Chloride Carbon Dioxide Anion Gap BUN Creatinine Estimated GFR Glucose Calcium Total Bilirubin AST ALT Alkaline Phosphatase Troponin I < 0.012 < 0.012 NT-Pro-B Natriuret Pep Serum Total Protein Albumin 04/25/18 04/25/18 22:44 22:44 WBC 6.1 RBC 4.59 Hgb 13.5 Hct 41.8 MCV 91.1 MCH 29.4 MCHC 32.3 RDW 14.9 H Plt Count 220 MPV 9.7 H Gran % 56.5 Eos # (Auto) 0.01 Absolute Lymphs (auto) 1.73 Absolute Monos (auto) 0.91 Lymphocytes % 28.2 Monocytes % 14.8 H Eosinophils % 0.2 Basophils % 0.3 Absolute Granulocytes 3.46 Basophils # 0.02 PT INR Sodium 141 Potassium 4.7 Chloride 108 H Carbon Dioxide 22 Anion Gap 16.5 H BUN 24 H Creatinine 1.02 Estimated GFR 54.4 Glucose 129 H Calcium 9.6 Total Bilirubin 0.30 AST 28 ALT 14 Alkaline Phosphatase 47 Troponin I NT-Pro-B Natriuret Pep 1350 Serum Total Protein 7.3 Albumin 4.4 Orders (Last 24 hours) Category Date Time Status Bedrest with BRP/BSC TOLERATED Activity 04/26/18 00:45 Active [employer] CONTINUOUS Care 04/26/18 00:45 Active [employer] STAT Care 04/25/18 22:41 Completed Code Status Order ROUTINE Care 04/26/18 00:45 Active EKG-ER Only STAT Care 04/25/18 22:40 Completed IV Insertion STAT Care 04/25/18 22:40 Completed IV Insertion STAT Care 04/26/18 00:45 Completed IV Insertion-2nd Peripheral STAT Care 04/25/18 22:44 Completed Implement Chest Pain Pathway ROUTINE Care 04/26/18 00:45 Active Intake and Output Q12H Care 04/26/18 00:45 Active Oxygen-ED Only NASAL CANNULA 2 lpm Care 04/25/18 22:[address] in Observation ROUTINE Care 04/26/18 00:45 Completed Vital Signs Q4H Care 04/26/18 00:45 Active Weight,Daily 0600 Care 04/26/18 00:45 Active Cardiac Diet Diet 04/26/18 Lunch Active CHEST 1 VIEW (PORTABLE) Stat Exams 04/25/18 22:41 Completed CBC W DIFF Stat Lab 04/25/18 22:44 Completed CMP Stat Lab 04/25/18 22:44 Completed NT PRO BNP Stat Lab 04/25/18 22:44 Completed PROTIME WITH INR Stat Lab 04/25/18 22:44 Completed TROPONIN Q3H Lab 04/25/18 22:44 Completed TROPONIN Q3H Lab 04/26/18 02:10 Completed TROPONIN Q3H Lab 04/26/18 05:00 Completed TROPONIN Q3H Lab 04/26/18 07:50 Completed TROPONIN Q3H Lab 04/26/18 10:45 Completed Amlodipine Besylate 5 mg [Norvasc 5 mg] Med 04/26/18 10:00 Active 2.5 mg PO QAM Aspirin EC 81 mg [Ecotrin 81 mg] Med 04/26/18 10:00 Active 81 mg PO DAILY Diltiazem HCl 100 mg/100 ml [Cardizem Drip 100 mg/100 Med 04/25/18 22:43 Discontinued ml D5w] 100 ml IV 10 mg/hr Diltiazem HCl 100 mg/100 ml [Cardizem Drip 100 mg/100 Med 04/25/18 22:39 Discontinued ml D5w] 100 ml IV UD Diltiazem HCl 50 mg/10 ml [Cardizem IV 50 MG/10 ML Med 04/25/18 22:43 Discontinued *] 15 mg IV STAT ONE Diltiazem HCl 50 mg/10 ml [Cardizem IV 50 MG/10 ML Med 04/25/18 22:38 Discontinued *] 50 mg IV .STK-MED ONE Levothyroxine Sodium 50 Mcg [Synthroid 50 Mcg] Med 04/26/18 10:00 Active 50 mcg PO DAILY Metoprolol Tartrate 50 mg [Lopressor 50 MG] Med 04/26/18 10:00 Active 75 mg PO BID NaCl 0.9% 10 ML FLUSH [Sodium Chloride 0.9% 10 ML FLUSH Med 04/26/18 08:26 Active Syringe] 10 ml IV PRN PRN NaCl 0.9% 10 ML FLUSH [Sodium Chloride 0.9% 10 ML FLUSH Med 04/26/18 14:00 Active Syringe] 10 ml IV Q8HT NaCl 0.9% 1000 ml [Sodium Chloride 0.9% 1000 ML] 1,000 Med 04/25/18 22:56 Discontinued ml .ROUTE UD NaCl 0.9% 1000 ml [Sodium Chloride 0.9% 1000 ML] 1,000 Med 04/25/18 22:45 Discontinued ml IV 50 mls/hr NaCl 0.9% 500 ml [Sodium Chloride 0.9% 500 ML] 500 ml Med 04/26/18 00:45 Discontinued IV 20 mls/hr Rivaroxaban 10 mg Tablet [Xarelto 10 mg Tablet] Med 04/26/18 18:00 Active 15 mg PO DAILY AT 1800 EKG DAILY RT 04/27/18 05:00 Active EKG DAILY RT 04/28/18 05:00 Active EKG DAILY RT 04/29/18 05:00 Active EKG Q8HX2,QAMX3,PRN RT 04/26/18 00:45 Completed EKG ROUTINE RT 04/26/18 07:02 Completed Oxygen NASAL CANNULA 2 lpm RT 04/26/18 00:45 Completed Pulse Oximetry CONTINUOUS RT 04/26/18 00:45 Completed Respiratory Therapy Assessment DAILY RT 04/26/18 01:23 Completed Transfer Order Routine Transfer 04/26/18 Completed Transfer Order Routine Transfer 04/26/18 Completed Patient Care Notes (Last 24 hours) 04/26/18 09:00 (created 04/26/18 09:06) Nursing Note by Maggy Chandler dr. updated by phone by edenilson britton. Initialized on 04/26/18 09:06 - END OF NOTE 04/26/18 08:30 (created 04/26/18 09:06) Nursing Note by Maggy Chandler transferred to med surg room 114 with tele Initialized on 04/26/18 09:06 - END OF NOTE 04/26/18 08:02 (created 04/26/18 08:10) Nursing Note by Maggy Chandler cardizem off Initialized on 04/26/18 08:10 - END OF NOTE 04/26/18 00:50 (created 04/26/18 05:29) Nursing Note by Mitra Paz PT ARRIVED TO ICU UNIT PER CART. CARDIZEM GTT STARTED IN ED AND INFUSING ON ARRIVAL. PT'S HEART RATE IS IN THE LOW 70'S AT ADMISSION, PACER SPIKES SEEN ON THE MONITOR, WITH REGULAR QRS INTERVALS Initialized on 04/26/18 05:29 - END OF NOTE - Vitals & Intake/Output Vital Signs: Vital Signs Temperature 96.3 F 04/26/18 11:53 Pulse Rate 71 04/26/18 11:53 Respiratory Rate 17 04/26/18 11:53 Blood Pressure 141/66 04/26/18 11:53 O2 Sat by Pulse Oximetry 96 04/26/18 11:53 Oxygen-Last Documented O2 Percentage 2 Liters = 28% Intake & Output: Intake & Output 04/24/18 04/25/18 04/26/18 04/27/18 11:59 11:59 11:59 11:59 Intake Total 1112 Output Total 900 Balance 212 Weight 53.6 kg - Lab Result Diagrams: 04/25/18 22:44 04/25/18 22:44 Lab Results-Last 24 Hrs: Lab Results-Last 24 Hours 04/25/18 04/25/18 04/25/18 Range/Units 22:44 22:44 22:44 WBC 6.1 (4.0-10.5) K/mm3 RBC 4.59 (4.1-5.4) M/mm3 Hgb 13.5 (12.0-16.0) gm/dl Hct 41.8 (35-47) % MCV 91.1 (78-100) fl MCH 29.4 (26-32) pg MCHC 32.3 (32-36) g/dl RDW 14.9 H (11.5-14.0) % Plt Count 220 (150-450) K/mm3 MPV 9.7 H (6-9.5) fl Gran % 56.5 (36.0-66.0) % Eos # (Auto) 0.01 (0-0.5) Absolute Lymphs (auto) 1.73 (1.0-4.6) Absolute Monos (auto) 0.91 (0.0-1.3) Lymphocytes % 28.2 (24.0-44.0) % Monocytes % 14.8 H (0.0-12.0) % Eosinophils % 0.2 (0.00-5.0) % Basophils % 0.3 (0.0-0.4) % Absolute Granulocytes 3.46 (1.4-6.9) Basophils # 0.02 (0-0.4) PT 11.9 (9.95-12.35) SECONDS INR 1.02 (0.8-3.0) Sodium 141 (137-145) mmol/L Potassium 4.7 (3.5-5.1) mmol/L Chloride 108 H (98-107) mmol/L Carbon Dioxide 22 (22-30) mmol/L Anion Gap 16.5 H (5-15) MEQ/L BUN 24 H (7-17) mg/dL Creatinine 1.02 (0.52-1.04) mg/dL Estimated GFR 54.4 ML/MIN Glucose 129 H (74-106) mg/dL Calcium 9.6 (8.4-10.2) mg/dL Total Bilirubin 0.30 (0.2-1.3) mg/dL AST 28 (14-36) U/L ALT 14 (0-35) U/L Alkaline Phosphatase 47 (38-126) U/L Troponin I (0.000-0.034) ng/mL NT-Pro-B Natriuret Pep 1350 (0-1800) pg/mL Serum Total Protein 7.3 (6.3-8.2) g/dL Albumin 4.4 (3.5-5.0) g/dL 04/25/18 04/26/18 04/26/18 Range/Units 22:44 02:10 05:00 WBC (4.0-10.5) K/mm3 RBC (4.1-5.4) M/mm3 Hgb (12.0-16.0) gm/dl Hct (35-47) % MCV (78-100) fl MCH (26-32) pg MCHC (32-36) g/dl RDW (11.5-14.0) % Plt Count (150-450) K/mm3 MPV (6-9.5) fl Gran % (36.0-66.0) % Eos # (Auto) (0-0.5) Absolute Lymphs (auto) (1.0-4.6) Absolute Monos (auto) (0.0-1.3) Lymphocytes % (24.0-44.0) % Monocytes % (0.0-12.0) % Eosinophils % (0.00-5.0) % Basophils % (0.0-0.4) % Absolute Granulocytes (1.4-6.9) Basophils # (0-0.4) PT (9.95-12.35) SECONDS INR (0.8-3.0) Sodium (137-145) mmol/L Potassium (3.5-5.1) mmol/L Chloride (98-107) mmol/L Carbon Dioxide (22-30) mmol/L Anion Gap (5-15) MEQ/L BUN (7-17) mg/dL Creatinine (0.52-1.04) mg/dL Estimated GFR ML/MIN Glucose (74-106) mg/dL Calcium (8.4-10.2) mg/dL Total Bilirubin (0.2-1.3) mg/dL AST (14-36) U/L ALT (0-35) U/L Alkaline Phosphatase (38-126) U/L Troponin I < 0.012 < 0.012 0.020 (0.000-0.034) ng/mL NT-Pro-B Natriuret Pep (0-1800) pg/mL Serum Total Protein (6.3-8.2) g/dL Albumin (3.5-5.0) g/dL 04/26/18 04/26/18 Range/Units 07:50 10:45 WBC (4.0-10.5) K/mm3 RBC (4.1-5.4) M/mm3 Hgb (12.0-16.0) gm/dl Hct (35-47) % MCV (78-100) fl MCH (26-32) pg MCHC (32-36) g/dl RDW (11.5-14.0) % Plt Count (150-450) K/mm3 MPV (6-9.5) fl Gran % (36.0-66.0) % Eos # (Auto) (0-0.5) Absolute Lymphs (auto) (1.0-4.6) Absolute Monos (auto) (0.0-1.3) Lymphocytes % (24.0-44.0) % Monocytes % (0.0-12.0) % Eosinophils % (0.00-5.0) % Basophils % (0.0-0.4) % Absolute Granulocytes (1.4-6.9) Basophils # (0-0.4) PT (9.95-12.35) SECONDS INR (0.8-3.0) Sodium (137-145) mmol/L Potassium (3.5-5.1) mmol/L Chloride (98-107) mmol/L Carbon Dioxide (22-30) mmol/L Anion Gap (5-15) MEQ/L BUN (7-17) mg/dL Creatinine (0.52-1.04) mg/dL Estimated GFR ML/MIN Glucose (74-106) mg/dL Calcium (8.4-10.2) mg/dL Total Bilirubin (0.2-1.3) mg/dL AST (14-36) U/L ALT (0-35) U/L Alkaline Phosphatase (38-126) U/L Troponin I 0.020 0.015 (0.000-0.034) ng/mL NT-Pro-B Natriuret Pep (0-1800) pg/mL Serum Total Protein (6.3-8.2) g/dL Albumin (3.5-5.0) g/dL - Radiology Exams Ordered Rad Exams-Entire Visit: Radiology Procedures Category Date Time Status CHEST 1 VIEW (PORTABLE) Stat Exams 04/25/18 22:41 Completed - Procedures and Test Procedures and Tests throughout Hospitalization: Therapy Orders & Screens 04/26/18 00:45 EKG Q8HX2,QAMX3,PRN Comment: Diagnosis: Chest Pain Oxygen NASAL CANNULA 2 lpm Comment: 04/26/18 01:23 Respiratory Therapy Assessment DAILY Comment: Diagnosis: RAPID ATRIAL FIBRILLATION RVR 04/26/18 07:02 EKG ROUTINE Comment: Diagnosis: RAPID ATRIAL FIBRILLATION RVR 04/27/18 05:00 EKG DAILY Comment: Diagnosis: RAPID ATRIAL FIBRILLATION RVR 04/28/18 05:00 EKG DAILY Comment: Diagnosis: RAPID ATRIAL FIBRILLATION RVR 04/29/18 05:00 EKG DAILY Comment: Diagnosis: RAPID ATRIAL FIBRILLATION RVR - Discharge Discharge Date: 04/26/18 Disposition: Home, Self-Care Condition: Stable Prescriptions: Continue Amlodipine Besylate [Norvasc] 2.5 mg PO DAILY Rivaroxaban [Xarelto] 15 mg PO EVENING MEAL Aspirin EC 81 mg [Ecotrin 81 mg] 81 mg PO DAILY Levothyroxine Sodium 50 Mcg [Synthroid 50 Mcg] 50 mcg PO DAILY Metoprolol Tartrate 75 mg PO BID Follow up with: DONN CHUN MD [Primary Care Provider] - 1 Week
[2018-04-26] MEDS ORDERED: Sodium Chloride 0.9% 10 ML FLUSH Syringe IV SCH (14:00)
[2018-04-26] MEDS ORDERED: XARELTO 10 MG TABLET PO SCH (18:00)
== END 2018-04-26 13:10 | disposition home or self-care (01) ==
LOC: ED 22:23 → INTOOBSV 04-26 00:39 → ICU 04-26 00:39 → MED SURG 04-26 08:34
PROVIDERS: ADMIT General Practice; ATTEND General Practice
DX: I48.91 Unspecified atrial fibrillation (principal); Z79.01 Long term (current) use of anticoagulants; Z79.899 Other long term (current) drug therapy
CPT/HCPCS: 36415; 80053; 83880; 84484; 85025; 85610; 93005; 93041; 93268; 94762; 96360; 96374; 96375; 99285; 99291; A9270; G0378; 36000; 71045

== ENCOUNTER 2018-09-03 02:36 | Emergency (ER) | payer MEDICARE ==
[2018-09-03] MEDS ORDERED: Zofran 4 MG/2 ML VIAL IV ONE (02:58)
[2018-09-03] MEDS ORDERED: Sodium Chloride 0.9% 1000 ML 1,000 ML IV SCH (03:00)
[2018-09-03] MEDS ORDERED: Sodium Chloride 0.9% 1000 ML 1,000 ML ONE (03:11)
[2018-09-03] MEDS ORDERED: Zofran 4 MG/2 ML VIAL ONE (03:11)
--- NOTE | 2018-09-03 03:16 | ERPHSYRPT ---
- History of Present Illness Time Seen by Provider: 09/03/18 03:12 Historian: patient, family, EMS Exam Limitations: no limitations Patient Subjective Stated Complaint: Diarrhea Triage Nursing Assessment: Patient brought into ED per EMS and transferred to bed with assist of 2. Patient A+O X 3. Patient complains of diarrhea for the past few hours. Patient states her entire family is sick with vomiting and diarrhea. Patient states she has been vomiting also. Abdomen round and soft with BS X 4. Lungs clear a/p osmar. Patient denies pain or discomfort. Physician History: pt is an 88 year old female with acute onset of vomiting and diarrhea but also some abd pain - although others in household are ill, the pt has more acute presentation of concern Timing/Duration: today Activities at Onset: none Quality: sharpness, stabbing Abdominal Pain Onset Location: epigastric, periumbilical Pain Radiation: no radiation Severity of Pain-Max: moderate Severity of Pain-Current: moderate Modifying Factors: Improves With: nothing Associated Symptoms: diarrhea, nausea, vomiting, weakness Previous symptoms: no prior history Allergies/Adverse Reactions: amoxicillin [Amoxicillin] Allergy (Verified 09/03/18 02:52) dicyclomine HCl [From Bentyl] Allergy (Verified 09/03/18 02:52) levofloxacin [From Levaquin] Allergy (Verified 09/03/18 02:52) Penicillins Allergy (Verified 09/03/18 02:52) sulfamethoxazole [From Bactrim] Allergy (Verified 09/03/18 02:52) Home Medications: Amlodipine Besylate [Norvasc] 2.5 mg PO DAILY 01/21/18 [History] Aspirin EC 81 mg [Ecotrin 81 mg] 81 mg PO DAILY 01/21/18 [History] Rivaroxaban [Xarelto] 15 mg PO EVENING MEAL 01/21/18 [History] Levothyroxine Sodium 50 Mcg [Synthroid 50 Mcg] 50 mcg PO DAILY 04/26/18 [ History] Metoprolol Tartrate 75 mg PO BID 04/26/18 [History] Alprazolam 0.25 mg [xanAX 0.25 MG] 1 tab PO HS 09/03/18 [History] Hx Tetanus, Diphtheria Vaccination/Date Given: Yes Hx Influenza Vaccination/Date Given: Yes Hx Pneumococcal Vaccination/Date Given: No Immunizations Up to Date: Yes - Review of Systems Constitutional: Malaise, Weakness, No Fever, No Chills Eyes: No Symptoms Ears, Nose, & Throat: No Symptoms Respiratory: No Cough, No Dyspnea Cardiac: No Chest Pain, No Edema, No Syncope Abdominal/Gastrointestinal: Abdominal Pain, Nausea, Vomiting, Diarrhea Genitourinary Symptoms: No Dysuria Musculoskeletal: No Back Pain, No Neck Pain Skin: No Rash Neurological: No Dizziness, No Focal Weakness, No Sensory Changes Psychological: No Symptoms Endocrine: No Symptoms All Other Systems: Reviewed and Negative - Past Medical History Pertinent Past Medical History: Yes Neurological History: No Pertinent History ENT History: Cataracts Cardiac History: Arrhythmia Respiratory History: No Pertinent History Endocrine Medical History: No Pertinent History, Other Musculoskeletal History: No Pertinent History GI Medical History: No Pertinent History History: No Pertinent History Psycho-Social History: No Pertinent History Female Reproductive Disorders: No Pertinent History Other Medical History: pacemaker placed 2016. goiter - Past Surgical History Past Surgical History: Yes Neuro Surgical History: No Pertinent History Cardiac: No Pertinent History Respiratory: No Pertinent History Gastrointestinal: No Pertinent History Genitourinary: No Pertinent History Female Surgical History: Hysterectomy, Other Other Surgical History: cyst removed from right breast, hyst 10 years ago, cataract surgery 2 years ago - Social History Smoking Status: Never smoker Exposure to second hand smoke: No Drug Use: none Patient Lives Alone: Yes - Nursing Vital Signs Nursing Vital Signs: Initial Vital Signs Temperature 98.6 F 09/03/18 02:55 Pulse Rate 70 09/03/18 02:55 Respiratory Rate 20 09/03/18 02:55 Blood Pressure 157/125 09/03/18 02:55 O2 Sat by Pulse Oximetry 97 09/03/18 02:55 Pain Scale Pain Intensity 0 - Physical Exam General Appearance: no apparent distress, alert Eye Exam: PERRL/EOMI, eyes nml inspection Ears, Nose, Throat Exam: normal ENT inspection, pharynx normal, moist mucous membranes Neck Exam: normal inspection, non-tender, supple, full range of motion Respiratory Exam: normal breath sounds, lungs clear, No respiratory distress Cardiovascular Exam: regular rate/rhythm, normal heart sounds Gastrointestinal/Abdomen Exam: soft, tenderness, No mass, No pulsatile mass, No rebound Pelvic Exam: deferred Rectal Exam: deferred Back Exam: normal inspection, normal range of motion, No CVA tenderness, No vertebral tenderness Extremity Exam: normal inspection, normal range of motion, pelvis stable Neurologic Exam: alert, oriented x 3, cooperative, normal mood/affect, nml cerebellar function, sensation nml, No motor deficits Skin Exam: normal color, warm, dry SpO2: 97 - Course Nursing assessment & vital signs reviewed: Yes EKG Interpreted by Me: NORMAL AXIS, NORMAL QRS, Non-specific ST Changes, Other ( atrial pacer) - CT Exams Abdomen/Pelvis CT Interpretation: Tele-radiologist Report, No appendicitis, Other ( inflammation consistent with diarrhea; no diverticulitis) Ordered Tests: Active Orders 24 hr Category Date Time Status Clean Catch Urine Specimen STAT Care 09/03/18 02:58 Active EKG-ER Only STAT Care 09/03/18 02:58 Active IV Insertion STAT Care 09/03/18 02:58 Active ABDOMEN AND PELVIS W/0 CONTRAS [CT] Stat Exams 09/03/18 02:59 Taken AMYLASE Stat Lab 09/03/18 03:45 Completed CBC W DIFF Stat Lab 09/03/18 03:45 Completed CMP Stat Lab 09/03/18 03:45 Completed CULTURE,URINE Stat Lab 09/03/18 04:25 Received LIPASE Stat Lab 09/03/18 03:45 Completed Lactic Acid Stat Lab 09/03/18 04:28 Completed TROPONIN Q3H Lab 09/03/18 03:45 Completed TROPONIN Q3H Lab 09/03/18 06:00 Ordered TROPONIN Q3H Lab 09/03/18 09:00 Ordered TROPONIN Q3H Lab 09/03/18 12:00 Ordered TROPONIN Q3H Lab 09/03/18 15:00 Ordered UA W/RFX UR CULTURE Stat Lab 09/03/18 04:25 Completed Medication Summary Generic Name Dose Route Start Last Admin Trade Name Freq PRN Reason Stop Dose Admin Sodium Chloride 1,000 mls @ 100 mls/hr 09/03/18 03:00 09/03/18 03:15 Sodium Chloride 0.9% 1000 Ml IV 10/03/18 02:59 100 mls/hr .Q10H KAYLA Administration Discontinued Medications Generic Name Dose Route Start Last Admin Trade Name Freq PRN Reason Stop Dose Admin Azithromycin 500 mg in 250 mls @ 250 mls/hr 09/03/18 04:30 09/03/18 05:00 Zithromax 500 Mg/ 250 Ml Nacl Premix IV 09/03/18 05:29 Not Given STAT ONE Ondansetron HCl 4 mg 09/03/18 02:58 09/03/18 03:12 Zofran 4 Mg/2 Ml Vial IV 09/03/18 02:59 4 mg STAT ONE Administration Ondansetron HCl Confirm 09/03/18 03:11 Zofran 4 Mg/2 Ml Vial Administered 09/03/18 03:12 Dose 4 mg .ROUTE .STK-MED ONE Lab/Rad Data: Laboratory Result Diagrams 09/03/18 03:45 09/03/18 03:45 Laboratory Results 09/03/18 09/03/18 09/03/18 Range/Units 04:28 04:25 03:45 WBC (4.0-10.5) K/mm3 RBC (4.1-5.4) M/mm3 Hgb (12.0-16.0) gm/dl Hct (35-47) % MCV (78-100) fl MCH (26-32) pg MCHC (32-36) g/dl RDW (11.5-14.0) % Plt Count (150-450) K/mm3 MPV (6-9.5) fl Gran % (36.0-66.0) % Eos # (Auto) (0-0.5) Absolute Lymphs (auto) (1.0-4.6) Absolute Monos (auto) (0.0-1.3) Lymphocytes % (24.0-44.0) % Monocytes % (0.0-12.0) % Eosinophils % (0.00-5.0) % Basophils % (0.0-0.4) % Absolute Granulocytes (1.4-6.9) Basophils # (0-0.4) Sodium (137-145) mmol/L Potassium (3.5-5.1) mmol/L Chloride (98-107) mmol/L Carbon Dioxide (22-30) mmol/L Anion Gap (5-15) MEQ/L BUN (7-17) mg/dL Creatinine (0.52-1.04) mg/dL Estimated GFR ML/MIN Glucose (74-106) mg/dL Lactic Acid 0.7 (0.4-2.0) Calcium (8.4-10.2) mg/dL Total Bilirubin (0.2-1.3) mg/dL AST (14-36) U/L ALT (0-35) U/L Alkaline Phosphatase (38-126) U/L Troponin I (0.000-0.034) ng/mL Serum Total Protein (6.3-8.2) g/dL Albumin (3.5-5.0) g/dL Amylase (30-110) U/L Lipase (23-300) U/L Urine Color YELLOW (YELLOW) Urine Appearance SLIGHTLY CLOUDY (CLEAR) Urine pH 5.0 (5-6) Ur Specific [place] 1.020 (1.005-1.025) Urine Protein NEGATIVE (Negative) Urine Ketones TRACE (NEGATIVE) Urine Blood NEGATIVE (0-5) Joey/ul Urine Nitrite NEGATIVE (NEGATIVE) Urine Bilirubin NEGATIVE (NEGATIVE) Urine Urobilinogen 2 (0-1) mg/dL Ur Leukocyte Esterase MODERATE (NEGATIVE) Urine WBC (Auto) 6-10 (0-5) /HPF Urine RBC (Auto) 0-2 (0-2) /HPF U Epithel Cells (Auto) NONE (FEW) /HPF Urine Bacteria (Auto) FEW (NEGATIVE) /HPF Urine Mucus (Auto) SLIGHT (NEGATIVE) /HPF Urine Culture Reflexed YES (NO) Urine Glucose NEGATIVE (NEGATIVE) mg/dL Influenza Type A Ag NEGATIVE (NEGATIVE) Influenza Type B Ag NEGATIVE (NEGATIVE) RSV (PCR) NEGATIVE (Negative) 09/03/18 09/03/18 09/03/18 Range/Units 03:45 03:45 03:45 WBC 12.2 H (4.0-10.5) K/mm3 RBC 4.71 (4.1-5.4) M/mm3 Hgb 14.5 (12.0-16.0) gm/dl Hct 43.7 (35-47) % MCV 92.8 (78-100) fl MCH 30.8 (26-32) pg MCHC 33.2 (32-36) g/dl RDW 13.4 (11.5-14.0) % Plt Count 184 (150-450) K/mm3 MPV 9.5 (6-9.5) fl Gran % 87.5 H (36.0-66.0) % Eos # (Auto) 0.01 (0-0.5) Absolute Lymphs (auto) 0.70 L (1.0-4.6) Absolute Monos (auto) 0.79 (0.0-1.3) Lymphocytes % 5.7 L (24.0-44.0) % Monocytes % 6.5 (0.0-12.0) % Eosinophils % 0.1 (0.00-5.0) % Basophils % 0.2 (0.0-0.4) % Absolute Granulocytes 10.71 H (1.4-6.9) Basophils # 0.02 (0-0.4) Sodium 140 (137-145) mmol/L Potassium 4.5 (3.5-5.1) mmol/L Chloride 110 H (98-107) mmol/L Carbon Dioxide 20 L (22-30) mmol/L Anion Gap 14.5 (5-15) MEQ/L BUN 23 H (7-17) mg/dL Creatinine 0.94 (0.52-1.04) mg/dL Estimated GFR 59.7 ML/MIN Glucose 107 H (74-106) mg/dL Lactic Acid (0.4-2.0) Calcium 9.6 (8.4-10.2) mg/dL Total Bilirubin 0.60 (0.2-1.3) mg/dL AST 23 (14-36) U/L ALT 14 (0-35) U/L Alkaline Phosphatase 41 (38-126) U/L Troponin I < 0.012 (0.000-0.034) ng/mL Serum Total Protein 7.0 (6.3-8.2) g/dL Albumin 4.2 (3.5-5.0) g/dL Amylase 110 (30-110) U/L Lipase 112 (23-300) U/L Urine Color (YELLOW) Urine Appearance (CLEAR) Urine pH (5-6) Ur Specific [place] (1.005-1.025) Urine Protein (Negative) Urine Ketones (NEGATIVE) Urine Blood (0-5) Joey/ul Urine Nitrite (NEGATIVE) Urine Bilirubin (NEGATIVE) Urine Urobilinogen (0-1) mg/dL Ur Leukocyte Esterase (NEGATIVE) Urine WBC (Auto) (0-5) /HPF Urine RBC (Auto) (0-2) /HPF U Epithel Cells (Auto) (FEW) /HPF Urine Bacteria (Auto) (NEGATIVE) /HPF Urine Mucus (Auto) (NEGATIVE) /HPF Urine Culture Reflexed (NO) Urine Glucose (NEGATIVE) mg/dL Influenza Type A Ag (NEGATIVE) Influenza Type B Ag (NEGATIVE) RSV (PCR) (Negative) - Progress Progress: improved, re-examined Progress Note: 09/03/18 05:43 discussed risk/benefit of antibiotics with pt anf she agrees with plan to wait 3 or more days for resolution and f/u with PCP also for liver nodule Counseled pt/family regarding: lab results, diagnosis, need for follow-up, rad results - Departure Time of Disposition: 05:44 Departure Disposition: Home Clinical Impression: Vomiting and diarrhea Condition: Good Critical Care Time: No Referrals: DONN CHUN MD [Primary Care Provider] - Instructions: Diarrhea in Adolescents and Adults, Nausea and Vomiting, Adult ( DC) Additional Instructions: although the cat scan did not show any problem other than diarrhea, and diverticula without infection, there still could be other problems evolving requiring intervention; followup with your dr for liver nodule /cyst , and if diarrhea not resolving in 3 days to consider antibiotics then. Prescriptions: Ondansetron ODT 4 MG [Zofran Odt 4 mg] 4 mg PO Q6H PRN PRN #10 tab.rapdis PRN Reason: Vomiting
[2018-09-03 04:05] LABS: BASOPHIL % 0.2 % (0.0-0.4); Basophil (Absolute #) 0.02 (0-0.4); Eosinophil % 0.1 % (0.00-5.0); Eosinophil (Absolute #) 0.01 (0-0.5); Granulocyte Absolute (ANC) 10.71 (1.4-6.9); Granulocytes % 87.5 % (36.0-66.0); Hematocrit 43.7 % (35-47); Hemoglobin 14.5 gm/dl (12.0-16.0); Lymphocytes % 5.7 % (24.0-44.0); Mean Cell Volume 92.8 fl (78-100); Mean Corpuscular Hemoglobin 30.8 pg (26-32); Mean Corpuscular Hgb Concent. 33.2 g/dl (32-36); Mean Platelet Volume 9.5 fl (6-9.5); Monocyte (Absolute #) 0.79 (0.0-1.3); Monocytes % 6.5 % (0.0-12.0); Platelet Count 184 K/mm3 (150-450); Red Blood Count 4.71 M/mm3 (4.1-5.4); Red Cell Distribution Width 13.4 % (11.5-14.0); White Blood Count 12.2 K/mm3 (4.0-10.5)
[2018-09-03 04:08] LABS: ALBUMIN 4.2 g/dL (3.5-5.0); ANION GAP 14.5 MEQ/L (5-15); BILIRUBIN,TOTAL 0.6 mg/dL (0.2-1.3); Calcium 9.6 mg/dL (8.4-10.2); Creatinine 1 0.94 mg/dL (0.52-1.04); Potassium 4.5 mmol/L (3.5-5.1)
[2018-09-03] MEDS ORDERED: Zithromax 500 MG/ 250 ML NaCl Premix 500 MG/250 ML IVPB IV ONE (04:30)
[2018-09-03 04:38] LABS: INFLUENZA A NEGATIVE (NEGATIVE); INFLUENZA B NEGATIVE (NEGATIVE); RESPIRATORY SYNCTIAL VIRUS NEGATIVE (Negative)
[2018-09-03 04:46] LABS: Appearance SLIGHTLY CLOUDY (CLEAR); Bacteria FEW /HPF (NEGATIVE); Bilirubin NEGATIVE (NEGATIVE); Blood NEGATIVE Ery/ul (0-5); Glucose NEGATIVE (NEGATIVE); Ketones TRACE (NEGATIVE); Leukocyte Esterase MODERATE (NEGATIVE); Mucus SLIGHT /HPF (NEGATIVE); Nitrite NEGATIVE (NEGATIVE); Protein,Urine Dip NEGATIVE (Negative); RBC 0-2 /HPF (0-2); Urobilinogen 2 mg/dL (0-1)
[2018-09-03 05:57] VITALS: BP 129/56; PULSE 78; O2SAT 96
--- NOTE | 2018-09-03 09:37 | XRAY ---
Indication: Abdomen pain, emesis, and diarrhea. Multiple contiguous axial images obtained through the abdomen and pelvis without contrast as ordered. Comparison: July 29, 2012. Lung bases again demonstrates minimal bibasilar fibrosis/scarring. No infiltrate or effusion. Heart is not enlarged. New small hiatal hernia. Noncontrasted stomach and bowel loops appear nonobstructed. Mild fluid distended small bowel loops with mild wall thickening favoring enteritis. Normal appendix.: Demonstrates mild fluid distention favoring diarrhea. Mild Again mild scattered colonic diverticulosis without diverticulitis. Again hysterectomy and calcified splenic granulomas. No free fluid/air. Remaining liver, gallbladder, pancreas, spleen, adrenal glands, kidneys, ureters, and bladder appear unremarkable for noncontrast exam. Moderate aortoiliac calcifications without AAA. Osseous structures intact again with lumbosacral junction degenerative disc disease. No ventral or inguinal hernias. Impression: 1. Mild fluid distended small bowel loops and colon with wall thickening favoring enterocolitis. 2. New hiatal hernia. 3. Stable colonic diverticulosis and evidence for old granulomatous disease. Comment: Preliminary interpretation was made by C. No discrepancy. CTDI 10.35
== END 2018-09-03 06:55 | disposition home or self-care (01) ==
LOC: ED 02:36
DX: R11.2 Nausea with vomiting, unspecified (principal); R19.7 Diarrhea, unspecified; Z79.899 Other long term (current) drug therapy
CPT/HCPCS: 36415; 74176; 80053; 81001; 82150; 83605; 83690; 84484; 85025; 87077; 87086; 87186; 87631; 93005; 96360; 96361; 96374; 99284; J2405